=== PATIENT | female | born 1945 | race Caucasian/White ===

== ENCOUNTER → 2016-11-06 | Outpatient (CLI) | payer MEDICARE, BC ==
--- NOTE | 2016-11-07 07:41 | MM ---
Reason for exam: screening (asymptomatic). Last mammogram was performed 1 year ago. History: Patient is postmenopausal. Taking estrogen for 14 years beginning at age 53. Physical Findings: A clinical breast exam by your physician is recommended on an annual basis and results should be correlated with mammographic findings. MG 3D Screening Mammo W/Cad Bilateral CC and MLO view(s) were taken. Prior study comparison: October 25, 2015, bilateral MG 3d screening mammo w/cad. October 26, 2014, right breast MG work up mamm w CAD RT. There are scattered fibroglandular densities. Finding: There is a new 7.9 mm mass in the 3 o'clock position of the left breast with calcifications, approximately 17cm from nipple. New finding since October 25, 2015 and October 26, 2014. ASSESSMENT: Incomplete: need additional imaging evaluation, BI-RAD 0 RECOMMENDATION: Ultrasound of the left breast. [address] [facility] will attempt to contact patient to return for ultrasound.
== END | disposition home or self-care (01) ==
LOC: RADMAMWWP 14:08
PROVIDERS: ATTEND Family Medicine
DX: Z12.31 Encounter for screening mammogram for malignant neoplasm of breast (principal)
CPT/HCPCS: 77063; G0202

== ENCOUNTER → 2016-11-11 | Outpatient (CLI) | payer MEDICARE, BC ==
--- NOTE | 2016-11-11 10:00 | USB ---
Reason for exam: additional evaluation requested from abnormal screening. History: Patient is postmenopausal. Taking estrogen for 14 years beginning at age 53. Physical Findings: Nurse did not find any significant physical abnormalities on exam. US Breast Workup Limited LT Left breast ultrasound demonstrates two lesions too small to characterize at 3 o'clock measuring 4 x 3 x 4mm and 3 x 3 x 3mm. These results were verbally communicated with the patient and result sheet given to the patient on 11/11/16. ASSESSMENT: Probably benign, BI-RAD 3 RECOMMENDATION: Follow-up diagnostic mammogram and ultrasound of the left breast in 6 months.
== END | disposition home or self-care (01) ==
LOC: RADUSWWP 08:54
PROVIDERS: ATTEND Family Medicine
DX: R92.8 Other abnormal and inconclusive findings on diagnostic imaging of breast (principal)

== ENCOUNTER → 2017-11-09 | Outpatient (CLI) | payer MEDICARE, BC ==
--- NOTE | 2017-11-11 07:32 | MM ---
Reason for exam: screening (asymptomatic). Last mammogram was performed 6 months ago. History: Patient is postmenopausal. Taking estrogen beginning at age 53. Physical Findings: A clinical breast exam by your physician is recommended on an annual basis and results should be correlated with mammographic findings. MG 3D Screening Mammo W/Cad Bilateral CC and MLO view(s) were taken. Prior study comparison: May 20, 2017, left breast MG 3d diag mammo w/cad LT. November 06, 2016, bilateral MG 3d screening mammo w/cad. The breast tissue is heterogeneously dense. This may lower the sensitivity of mammography. There are similar appearing bilateral round oval masses. No suspicious abnormality. ASSESSMENT: Benign, BI-RAD 2 RECOMMENDATION: Routine screening mammogram of both breasts in 1 year.
== END | disposition home or self-care (01) ==
LOC: RADMAMWWP 16:26
PROVIDERS: ATTEND Family Medicine
DX: Z12.31 Encounter for screening mammogram for malignant neoplasm of breast (principal)
CPT/HCPCS: 77063; 77067

== ENCOUNTER → 2018-11-16 | Outpatient (CLI) | payer MEDICARE, BC ==
--- NOTE | 2018-11-16 12:11 | MM ---
Reason for exam: screening (asymptomatic). Last mammogram was performed 1 year ago. History: Patient is postmenopausal. Took estrogen beginning at age 53. Physical Findings: A clinical breast exam by your physician is recommended on an annual basis and results should be correlated with mammographic findings. MG 3D Screening Mammo W/Cad Bilateral CC and MLO view(s) were taken. Prior study comparison: November 09, 2017, bilateral MG 3d screening mammo w/cad. May 20, 2017, left breast MG 3d diag mammo w/cad LT. The breast tissue is heterogeneously dense. This may lower the sensitivity of mammography. There are benign appearing round, vascular calcifications bilaterally. There is no discrete abnormality. ASSESSMENT: Benign, BI-RAD 2 RECOMMENDATION: Routine screening mammogram of both breasts in 1 year.
== END | disposition home or self-care (01) ==
LOC: RADMAMWWP 09:32
PROVIDERS: ATTEND Family Medicine
DX: Z12.31 Encounter for screening mammogram for malignant neoplasm of breast (principal)
CPT/HCPCS: 77063; 77067

== ENCOUNTER → 2019-04-26 | Outpatient (CLI) | payer MEDICARE, BC ==
--- NOTE | 2019-04-26 15:54 | BD ---
EXAMINATION TYPE: Axial Bone Density DATE OF EXAM: 04/26/2019 COMPARISON: 10.18.2014 CLINICAL HISTORY: 73 YR OLD FEMALE....ICD-10 CODE: M89.9 DISORDER OF BONE Height: 64 Weight: 231 FRAX RISK QUESTIONS: History of Fracture in Adulthood: YES Secondary Osteoporosis: YES 1. Type 1 Diabetes: YES RISK FACTORS HISTORY OF: BOTH ELBOWS FXed AFTER AGE 51 Surgery to Spine LUMBAR SPINE FUSION WITH RODS AND SCREWS Postmenopausal woman: HYST AT AGE 53 YRS OLD, HORMONES IN THE PAST NONE NOW Lost more than 2 inches in height since high school: YES Frequent falls: UNSTEADY Hyperparathyroidism: NO Adrenal Insufficiency: NO MEDICATIONS: Additional Medications: PAIN PILLS, BP MEDS, ORAL DIABETIC MEDS AND INSULIN, VIT D, STATIN FOR CHOLES TEROL Additional History: OSTEOARTHRITIS, BILAT TKRs , DIABETIC, CHOLESTEROL, HYPERTENSION EXAM MEASUREMENTS: Bone mineral densitometry was performed using the [employer] System. SPINAL SURG, WITH HARDWARE, SPINE NOT SCANNED Bone mineral density about the R hip (g/cm2): 0.977 Bone mineral density about the L hip (g/cm2): 0.894 T Score values are as follows: -----R Neck: -1.3 -----L Neck: -1.9 -----R Total: -0.2 -----L Total: -0.9 Bone mineral density has: Decreased -0.5% since study of: 10.18.2014 FRAX%s: THERE IS A 16.9% CHANCE FOR A MAJOR OSTEOPOROTIC FX AND A 3.3% FOR HIP.....PROBABILITY FOR FX IN 10 YRS TIME Bone mineral density about the L Wrist (g/cm2): 0.606 T Score values are as follows: -----Dist. R+U: 1.0 -----Prox. R+U: -0.1 -----Radius total: -0.6 Bone mineral density FIRST FOREARM SCAN IMPRESSION: No evidence for osteoporosis or osteopenia at this time. NOTE: T-SCORE=SD OF THE YOUNG ADULT MEAN.
== END | disposition home or self-care (01) ==
LOC: RADBDWWP 12:48
PROVIDERS: ATTEND Family Medicine
DX: M85.80 Other specified disorders of bone density and structure, unspecified site (principal)
CPT/HCPCS: 77080

== ENCOUNTER → 2020-02-13 | Outpatient (CLI) | payer MEDICARE, BC ==
--- NOTE | 2020-02-15 11:03 | MM ---
Reason for exam: screening (asymptomatic). Last mammogram was performed 1 year and 3 months ago. History: Patient is postmenopausal. Took estrogen beginning at age 53. Physical Findings: A clinical breast exam by your physician is recommended on an annual basis and results should be correlated with mammographic findings. MG 3D Screening Mammo W/Cad Bilateral CC and MLO view(s) were taken. Prior study comparison: November 16, 2018, bilateral MG 3d screening mammo w/cad. November 09, 2017, bilateral MG 3d screening mammo w/cad. There are scattered fibroglandular densities. No significant changes when compared with prior studies. ASSESSMENT: Negative, BI-RAD 1 RECOMMENDATION: Routine screening mammogram of both breasts in 1 year.
== END | disposition home or self-care (01) ==
LOC: RADMAMWWP 07:31
PROVIDERS: ATTEND Family Medicine
DX: Z12.31 Encounter for screening mammogram for malignant neoplasm of breast (principal)
CPT/HCPCS: 77063; 77067

== ENCOUNTER → 2020-04-21 | Outpatient (CLI) | payer MEDICARE, BC | END | disposition home or self-care (01) | LOC: RADMRIMAIN 12:49 | PROVIDERS: ATTEND Orthopaedic Surgery | DX: Z53.9 Procedure and treatment not carried out, unspecified reason (principal) ==

== ENCOUNTER → 2021-03-21 | Outpatient (CLI) | payer MEDICARE, BC ==
--- NOTE | 2021-03-25 10:50 | MM ---
Reason for exam: screening (asymptomatic). Last mammogram was performed 1 year and 1 month ago. History: Patient is postmenopausal. Took estrogen for 10 years beginning at age 53. Physical Findings: A clinical breast exam by your physician is recommended on an annual basis and results should be correlated with mammographic findings. MG 3D Screening Mammo W/Cad Bilateral CC and MLO view(s) were taken. Prior study comparison: February 13, 2020, bilateral MG 3d screening mammo w/cad. November 16, 2018, bilateral MG 3d screening mammo w/cad. There is chronic nodularity bilaterally. No significant changes when compared with prior studies. ASSESSMENT: Negative, BI-RAD 1 RECOMMENDATION: Routine screening mammogram of both breasts in 1 year.
== END | disposition home or self-care (01) ==
LOC: RADMAMWWP 12:16
PROVIDERS: ATTEND Family Medicine
DX: Z12.31 Encounter for screening mammogram for malignant neoplasm of breast (principal)
CPT/HCPCS: 77063; 77067

== ENCOUNTER → 2021-08-21 | Outpatient (CLI) | payer MEDICARE, BC ==
--- NOTE | 2021-08-21 15:39 | XR ---
EXAMINATION TYPE: XR chest 2V DATE OF EXAM: 08/21/2021 COMPARISON: 02/22/2016 INDICATION: Short of breath TECHNIQUE: Frontal and lateral views of the chest are obtained. FINDINGS: The heart size is normal. The pulmonary vasculature is normal. The lungs are clear. IMPRESSION: 1. No acute pulmonary process.
== END | disposition home or self-care (01) ==
LOC: RADXRYALE 15:12
PROVIDERS: ATTEND Physician Assistant Medical
DX: R06.02 Shortness of breath (principal)
CPT/HCPCS: 71046

== ENCOUNTER 2021-08-23 21:45 | Inpatient (IN) | payer MEDICARE, BC ==
--- NOTE | 2021-08-23 22:26 | ED ---
Recheck HPI - General Chief Complaint: Recheck/Abnormal Lab/Rx Stated Complaint: Weakness Time Seen by Provider: 08/23/21 22:11 Source: patient, EMS, RN notes reviewed, old records reviewed Mode of arrival: EMS Limitations: no limitations - History of Present Illness Initial Comments: This is a 76-year-old female to the emergency today. Patient presents today after being accepted in transfer for low potassium elevated calcium. Patient currently is besides from being be mildly weak and dehydrated has no significant complaints. No headache chest pain shortness breath or abdominal pain. No muscle pain. MD Complaint: abnormal lab (Low potassium high calcium) Returns Today for: Called Because of Abnormal Lab/Test Symptoms Since Prior Visit: no new symptoms Context: planned re-check, called for abnormal lab result Associated Symptoms: none Treatments Prior to Arrival: other medications - Related Data Home Medications Medication Instructions Recorded Confirmed Losartan Potassium 50 mg PO DAILY 01/11/14 08/23/21 metFORMIN HCL [Glucophage] 500 mg PO BID 01/11/14 08/23/21 Insulin Detemir [Levemir Flextouch 27 units SQ HS 02/20/16 08/23/21 Pen] Atorvastatin [Lipitor] 40 mg PO HS 08/23/21 08/23/21 Ergocalciferol (Vitamin D2) 1,250 mcg PO DIAZ 08/23/21 08/23/21 [Drisdol (50,000 Iu)] Gabapentin [Neurontin] 300 mg PO BID 08/23/21 08/23/21 HYDROcodone/APAP 7.5-325MG [[place] 1 tab PO TID 08/23/21 08/23/21 7.5-325] Ibuprofen [Motrin Ib] 400 mg PO Q8H PRN 08/23/21 08/23/21 Pioglitazone [Actos] 45 mg PO DAILY 08/23/21 08/23/21 hydroCHLOROthiazide [Hydrodiuril] 25 mg PO DAILY 08/23/21 08/23/21 Allergies Allergy/AdvReac Type Severity Reaction Status Date / Time PAM Inhibitors Allergy Cough Verified 08/23/21 23:19 adhesive Allergy Rash/Hives,SKIN Verified 08/23/21 23:19 BLISTERS clarithromycin [From Biaxin] Allergy INSOMINA Verified 08/23/21 23:19 meloxicam [From Mobic] Allergy Itching Verified 08/23/21 23:19 naproxen Allergy Itching Verified 08/23/21 23:19 Review of Systems ROS Statement: Those systems with pertinent positive or pertinent negative responses have been documented in the HPI. ROS Other: All systems not noted in ROS Statement are negative. Past Medical History Past Medical History: Diabetes Mellitus, Hyperlipidemia, Hypertension Additional Past Medical History / Comment(s): arthritis History of Any Multi-Drug Resistant Organisms: None Reported Past Surgical History: Hysterectomy, Orthopedic Surgery Additional Past Surgical History / Comment(s): 1--16 TOTAL RT KNEE ARTHROPLASTY. RIGHT SHOULDER ROTATOR CUFF,RADHA CATARACT SURGERY,RIGHT KNEE ARTHROSCOPIC Past Anesthesia/Blood Transfusion Reactions: No Reported Reaction Additional Past Anesthesia/Blood Transfusion Reaction / Comment(s): "Hard to wake up" Past Psychological History: No Psychological Hx Reported Smoking Status: Never smoker Past Alcohol Use History: None Reported Past Drug Use History: None Reported - Past Family History Father Family Medical History: Cancer Additional Family Medical History / Comment(s): PROSTATE Mother Family Medical History: CVA/TIA General Exam General appearance: alert, in no apparent distress Head exam: Present: atraumatic, normocephalic, normal inspection Eye exam: Present: normal appearance, PERRL, EOMI. Absent: scleral icterus, conjunctival injection, periorbital swelling ENT exam: Present: normal exam, mucous membranes moist Neck exam: Present: normal inspection. Absent: tenderness, meningismus, lymphadenopathy Respiratory exam: Present: normal lung sounds bilaterally. Absent: respiratory distress, wheezes, rales, rhonchi, stridor Cardiovascular Exam: Present: regular rate, normal rhythm, normal heart sounds. Absent: systolic murmur, diastolic murmur, rubs, gallop, clicks GI/Abdominal exam: Present: soft, normal bowel sounds. Absent: distended, tenderness, guarding, rebound, rigid Extremities exam: Present: normal inspection, full ROM, normal capillary refill. Absent: tenderness, pedal edema, joint swelling, calf tenderness Back exam: Present: normal inspection Neurological exam: Present: alert, oriented X3, CN II-XII intact Psychiatric exam: Present: normal affect, normal mood Skin exam: Present: warm, dry, intact, normal color. Absent: rash Course Vital Signs 08/23/21 08/23/21 08/23/21 21:53 22:23 23:23 Temperature 98.7 F Pulse Rate 77 56 L 54 L Respiratory 18 18 18 Rate Blood Pressure 169/84 165/84 181/92 O2 Sat by Pulse 98 98 95 Oximetry - Reevaluation(s) Reevaluation #1: 08/24/21 00:39 Medical record is reviewed Reevaluation #2: 08/24/21 00:39 Patient's transfer paperwork is also been reviewed 08/24/21 00:39 Patient was accepted in transfer Reevaluation #3: 08/24/21 00:39 Patient informed results and questions answered - Consultations Consultation #1: Spoke with [facility] who agrees to admit this patient Medical Decision Making - Medical Decision Making 76 female to the emergency department. Patient presents today for evaluation regards to recheck of low potassium and elevated calcium. Patient does have some dehydration, electrolyte values are improving will be admitted for further monitoring - Lab Data Result diagrams: 08/23/21 23:15 08/23/21 23:15 Lab Results 08/23/21 08/23/21 08/23/21 Range/Units 23:15 23:15 23:15 WBC 6.0 (3.8-10.6) k/uL RBC 4.25 (3.80-5.40) m/uL Hgb 12.8 (11.4-16.0) gm/dL Hct 38.1 (34.0-46.0) % MCV 89.7 (80.0-100.0) fL MCH 30.2 (25.0-35.0) pg MCHC 33.6 (31.0-37.0) g/dL RDW 14.7 (11.5-15.5) % Plt Count 241 (150-450) k/uL MPV 8.4 Neutrophils % (Manual) 56 % Lymphocytes % (Manual) 36 % Monocytes % (Manual) 5 % Eosinophils % (Manual) 3 % Neutrophils # (Manual) 3.36 (1.3-7.7) k/uL Lymphocytes # (Manual) 2.16 (1.0-4.8) k/uL Monocytes # (Manual) 0.30 (0-1.0) k/uL Eosinophils # (Manual) 0.18 (0-0.7) k/uL Nucleated RBCs 0 (0-0) /100 WBC Manual Slide Review Performed Toxic Vacuolation Present RBC Morphology Normal PT 10.9 (9.0-12.0) sec INR 1.0 (<1.2) APTT 28.0 (22.0-30.0) sec Sodium (137-145) mmol/L Potassium (3.5-5.1) mmol/L Chloride (98-107) mmol/L Carbon Dioxide (22-30) mmol/L Anion Gap mmol/L BUN (7-17) mg/dL Creatinine (0.52-1.04) mg/dL Est GFR (CKD-EPI)AfAm (>60 ml/min/1.73 sqM) Est GFR (CKD-EPI)NonAf (>60 ml/min/1.73 sqM) Glucose (74-99) mg/dL Plasma Lactic Acid Jose A (0.7-2.0) mmol/L Calcium (8.4-10.2) mg/dL Total Bilirubin (0.2-1.3) mg/dL AST (14-36) U/L ALT (4-34) U/L Alkaline Phosphatase (38-126) U/L Troponin I (0.000-0.034) ng/mL Total Protein (6.3-8.2) g/dL Albumin (3.5-5.0) g/dL Urine Color Light Yellow Urine Appearance Clear (Clear) Urine pH 6.0 (5.0-8.0) Ur Specific [place]ushing 1.005 (1.001-1.035) Urine Protein Negative (Negative) Urine Glucose (UA) Negative (Negative) Urine Ketones Negative (Negative) Urine Blood Negative (Negative) Urine Nitrite Negative (Negative) Urine Bilirubin Negative (Negative) Urine Urobilinogen <2.0 (<2.0) mg/dL Ur Leukocyte Esterase Small H (Negative) Urine RBC 2 (0-5) /hpf Urine WBC 3 (0-5) /hpf Ur Squamous Epith Cells 1 (0-4) /hpf Urine Bacteria Rare H (None) /hpf 08/23/21 08/23/21 08/23/21 Range/Units 23:15 23:15 23:15 WBC (3.8-10.6) k/uL RBC (3.80-5.40) m/uL Hgb (11.4-16.0) gm/dL Hct (34.0-46.0) % MCV (80.0-100.0) fL MCH (25.0-35.0) pg MCHC (31.0-37.0) g/dL RDW (11.5-15.5) % Plt Count (150-450) k/uL MPV Neutrophils % (Manual) % Lymphocytes % (Manual) % Monocytes % (Manual) % Eosinophils % (Manual) % Neutrophils # (Manual) (1.3-7.7) k/uL Lymphocytes # (Manual) (1.0-4.8) k/uL Monocytes # (Manual) (0-1.0) k/uL Eosinophils # (Manual) (0-0.7) k/uL Nucleated RBCs (0-0) /100 WBC Manual Slide Review Toxic Vacuolation RBC Morphology PT (9.0-12.0) sec INR (<1.2) APTT (22.0-30.0) sec Sodium 134 L (137-145) mmol/L Potassium 3.5 (3.5-5.1) mmol/L Chloride 100 (98-107) mmol/L Carbon Dioxide 28 (22-30) mmol/L Anion Gap 6 mmol/L BUN 21 H (7-17) mg/dL Creatinine 1.97 H (0.52-1.04) mg/dL Est GFR (CKD-EPI)AfAm 28 (>60 ml/min/1.73 sqM) Est GFR (CKD-EPI)NonAf 24 (>60 ml/min/1.73 sqM) Glucose 108 H (74-99) mg/dL Plasma Lactic Acid Jose A 1.6 (0.7-2.0) mmol/L Calcium 12.4 H (8.4-10.2) mg/dL Total Bilirubin 1.0 (0.2-1.3) mg/dL AST 34 (14-36) U/L ALT 23 (4-34) U/L Alkaline Phosphatase 70 (38-126) U/L Troponin I 0.016 (0.000-0.034) ng/mL Total Protein 7.2 (6.3-8.2) g/dL Albumin 3.8 (3.5-5.0) g/dL Urine Color Urine Appearance (Clear) Urine pH (5.0-8.0) Ur Specific [place] (1.001-1.035) Urine Protein (Negative) Urine Glucose (UA) (Negative) Urine Ketones (Negative) Urine Blood (Negative) Urine Nitrite (Negative) Urine Bilirubin (Negative) Urine Urobilinogen (<2.0) mg/dL Ur Leukocyte Esterase (Negative) Urine RBC (0-5) /hpf Urine WBC (0-5) /hpf Ur Squamous Epith Cells (0-4) /hpf Urine Bacteria (None) /hpf - EKG Data -: EKG Interpreted by Me (EKG is sinus bradycardia 55 AR 170 QRS 140 QTC 404) Disposition Clinical Impression: Hypokalemia, Hypercalcemia, Weakness, Dehydration Disposition: ADMITTED IP TO THIS HOSP Condition: Good Is patient prescribed a controlled substance at d/c from ED?: No Referrals: Carlos Lao DO [Primary Care Provider] - 1-2 days
[2021-08-23 23:35] LABS: Appearance,Urine Clear (Clear); Bacteria,Urine Rare /hpf; Bilirubin,Urine Negative (Negative); Blood,Urine Negative (Negative); Color,Urine Light Yellow; Glucose,Urine (UA) Negative (Negative); HCT 38.1 % (34.0-46.0); HGB 12.8 gm/dL (11.4-16.0); Ketones,Urine Negative (Negative); Leukocyte Esterase,Urine Small (Negative); MCH 30.2 pg (25.0-35.0); MCHC 33.6 g/dL (31.0-37.0); MCV 89.7 fL (80.0-100.0); Mean Platelet Volume 8.4; Nitrite,Urine Negative (Negative); Platelet Count 241 k/uL (150-450); Protein,Urine Negative (Negative); RBC 4.25 m/uL (3.80-5.40); RBC,Urine 2 /hpf (0-5); RDW 14.7 % (11.5-15.5); Specific Gravity,Urine 1.005 (1.001-1.035); Squamous Epithelial Cell,Urine 1 /hpf (0-4); Urobilinogen,Urine <2.0 mg/dL (<2.0); WBC,Urine 3 /hpf (0-5)
--- NOTE | 2021-08-23 23:37 | XR ---
EXAMINATION TYPE: XR chest 2V DATE OF EXAM: 08/23/2021 COMPARISON: 08/23/2021 HISTORY: Weakness TECHNIQUE: 2 views FINDINGS: There is no heart failure nor confluent pneumonic infiltrate. Costophrenic angles are clear . There are chest leads. IMPRESSION: No active cardiopulmonary disease. Normal heart. No change.
[2021-08-23 23:43] LABS: Potassium 3.5 mmol/L (3.5-5.1); Prothrombin Time 10.9 sec (9.0-12.0)
[2021-08-23 23:44] LABS: Albumin 3.8 g/dL (3.5-5.0); Calcium 12.4 mg/dL (8.4-10.2); Total Protein 7.2 g/dL (6.3-8.2)
[2021-08-24 00:06] LABS: Eosinophils # (M) 0.18 k/uL (0-0.7); Lymphocytes # (M) 2.16 k/uL (1.0-4.8); Neutrophils # (M) 3.36 k/uL (1.3-7.7); Neutrophils % (M) 56 %; Nucleated Red Blood Cells 0 /100 WBC (0-0); RBC Morphology Normal; Total Cells Counted 100
[2021-08-24 00:07] LABS: Toxic Vacuolation Present
[2021-08-24] MEDS ORDERED: SODIUM CHLORIDE 0.9% 500 ML 500 ML IV STA (00:30)
[2021-08-24] MEDS ORDERED: SODIUM CHLORIDE 0.9% 1,000 ML IV STA (00:30)
[2021-08-24] MEDS ORDERED: POTASSIUM BICARBONATE/CIT AC 20 MEQ TABLET.EFF PO ONE (00:30)
[2021-08-24] MEDS ORDERED: NALOXONE 0.4 MG/ML 1 ML VIAL IV PRN (00:31)
[2021-08-24] MEDS: SODIUM CHLORIDE 0.9% 1,000 ML IV SCH ×3 (01:39→16:22)
--- NOTE | 2021-08-24 04:23 | P.HPIM ---
History of Present Illness H&P Date: 08/24/21 Patient is a 76-year-old female with a PMH of type II DM, hypertension, hyperlipidemia who presents to the emergency room with complaints of generalized weakness. The patient reports that over the past few weeks, she has been feeling progressively weaker and has also had decreased exercise tolerance. She reports endorsing these problems to her PCP who referred her to cardiology where some tests were performed but the patient does not know the results of those tests. The patient denied any additional complaints. She denied experiencing chest discomfort, nausea, vomiting, abdominal pain, fever, chills, cough, diarrhea. She underwent laboratory evaluation as ordered by her PCP who called the patient and advised her to go to the emergency room immediately. The patient reports she was told that her calcium was high and her potassium was low. Patient presented to the [facility] emergency room where laboratory evaluation revealed a potassium of 3.0 and calcium of 13.5. The patient's UA was also consistent with UTI for which the patient was given ceftriaxone 1 g and was subsequently sent to [place] emergency room. In our laboratory evaluation, the patient's potassium was 3.5 with calcium 12.4, BUN 21, creatinine 1.97, and an unremarkable UA. EKG reveals sinus bradycardia at 55 bpm with sinus arrhythmia and left axis deviation as well as left bundle branch block. Chest x-ray was unremarkable. Review of systems: Pertinent positives and negatives as discussed in HPI, a complete review of systems was performed and all other systems are negative. Physical examination: General: non toxic, no distress, appears at stated age, obese Derm: no unusual rashes/lesions no unusual ecchymoses, warm, dry Head: atraumatic, normocephalic, symmetric Eyes: EOMI, no lid lag, anicteric sclera, pupils equal round reactive to light ENT: Nose and ears atraumatic, no thrush, no pharyngeal erythema Neck: No thyromegaly, no cervical lymphadenopathy, trachea midline, supple Mouth: no lip lesion, mucus membranes moist Cardiovascular: S1S2 reg, no murmur, positive posterior tibial pulse bilateral, no edema, capillary refill less than 2 seconds Lungs: CTA bilateral, no rhonchi, no rales , no accessory muscle use Abdominal: soft, nontender to palpation, no guarding, no appreciable organomegaly, normal bowel sounds Ext: no gross muscle atrophy, muscle strength 4 out of 5 in all 4 extremities grossly, no contractures, Neuro: CN II-XI grossly intact, light touch intact all 4 extremities, finger to nose within normal limits, Psych: Alert, oriented, appropriate affect Assessment/plan Hypercalcemia -Obtain workup including myeloma and PTH levels Hypokalemia -Replace and monitor Kidney injury, acute versus chronic -Creatinine 1.97, previously 0.7 in 2016 -Maybe due to underlying myeloma versus poor oral intake Chronic conditions: Type II DM, hypertension, hyperlipidemia -Continue with home meds -Insulin sliding scale and blood glucose monitoring -Check A1c DVT prophylaxis -Heparin subcu The patient is admitted with an anticipated less than 2 midnight stay for evaluation of hypercalcemia CODE STATUS: Full Code Discussed with: Patient Anticipated discharge date: in am Anticipated discharge place: Home Past Medical History Past Medical History: Diabetes Mellitus, Hyperlipidemia, Hypertension Additional Past Medical History / Comment(s): arthritis History of Any Multi-Drug Resistant Organisms: None Reported Past Surgical History: Hysterectomy, Orthopedic Surgery Additional Past Surgical History / Comment(s): 06-05-15 TOTAL RT KNEE ARTHROPLASTY. RIGHT SHOULDER ROTATOR CUFF,RADHA CATARACT SURGERY,RIGHT KNEE ART HROSCOPIC Past Anesthesia/Blood Transfusion Reactions: No Reported Reaction Additional Past Anesthesia/Blood Transfusion Reaction / Comment(s): "Hard to wake up" Past Psychological History: No Psychological Hx Reported Smoking Status: Never smoker Past Alcohol Use History: None Reported Past Drug Use History: None Reported - Past Family History Father Family Medical History: Cancer Additional Family Medical History / Comment(s): PROSTATE Mother Family Medical History: CVA/TIA Medications and Allergies Home Medications Medication Instructions Recorded Confirmed Type Losartan Potassium 50 mg PO DAILY 01/11/14 08/23/21 History metFORMIN HCL [Glucophage] 500 mg PO BID 01/11/14 08/23/21 History Insulin Detemir [Levemir Flextouch 27 units SQ HS 02/20/16 08/23/21 History Pen] Atorvastatin [Lipitor] 40 mg PO HS 08/23/21 08/23/21 History Ergocalciferol (Vitamin D2) 1,250 mcg PO DIAZ 08/23/21 08/23/21 History [Drisdol (50,000 Iu)] Gabapentin [Neurontin] 300 mg PO BID 08/23/21 08/23/21 History HYDROcodone/APAP 7.5-325MG [[place] 1 tab PO TID 08/23/21 08/23/21 History 7.5-325] Ibuprofen [Motrin Ib] 400 mg PO Q8H PRN 08/23/21 08/23/21 History Pioglitazone [Actos] 45 mg PO DAILY 08/23/21 08/23/21 History hydroCHLOROthiazide [Hydrodiuril] 25 mg PO DAILY 08/23/21 08/23/21 History Allergies Allergy/AdvReac Type Severity Reaction Status Date / Time PAM Inhibitors Allergy Cough Verified 08/23/21 23:19 adhesive Allergy Rash/Hives,SKIN Verified 08/23/21 23:19 BLISTERS clarithromycin [From Biaxin] Allergy INSOMINA Verified 08/23/21 23:19 meloxicam [From Mobic] Allergy Itching Verified 08/23/21 23:19 naproxen Allergy Itching Verified 08/23/21 23:19 Physical Exam Vitals: Vital Signs Temp Pulse Pulse Resp BP BP Pulse Ox 08/24/21 01:34 69 18 167/80 96 08/24/21 00:45 98.6 F 71 16 187/79 97 08/23/21 23:23 54 L 18 181/92 95 08/23/21 22:23 56 L 18 165/84 98 08/23/21 21:53 98.7 F 77 18 169/84 98 Intake and Output 08/23/21 08/23/21 08/24/21 14:59 22:59 06:59 Other: Weight 99.337 kg 99.337 kg Results CBC & Chem 7: 08/23/21 23:15 08/23/21 23:15 Labs: Abnormal Lab Results - Last 24 Hours (Table) 08/23/21 08/23/21 Range/Units 23:15 23:15 Sodium 134 L (137-145) mmol/L BUN 21 H (7-17) mg/dL Creatinine 1.97 H (0.52-1.04) mg/dL Glucose 108 H (74-99) mg/dL Calcium 12.4 H (8.4-10.2) mg/dL Ur Leukocyte Esterase Small H (Negative) Urine Bacteria Rare H (None) /hpf Thrombosis Risk Factor Assmnt - Choose All That Apply Any of the Below Risk Factors Present?: Yes Each Factor Represents 1 point: Obesity (BMI >25) Other Risk Factors: Yes Each Risk Factor Represents 3 Points: Age 75 years or older Other congenital or acquired thrombophilia - If yes, enter type in comment: No Thrombosis Risk Factor Assessment Total Risk Factor Score: 4 Thrombosis Risk Factor Assessment Level: Moderate Risk
[2021-08-24] MEDS: HYDROcodone/APAP 7.5-325MG 1 EACH TAB PO PRN ×3 (05:51→22:37)
[2021-08-24 07:23] LABS: Glucose,Whole Blood 108 mg/dL (75-99)
[2021-08-24] MEDS: INSULIN ASPART (NovoLOG) 100 UNIT/ML VIAL SQ SCH ×4 (07:46→21:04)
--- NOTE | 2021-08-24 08:05 | US ---
EXAMINATION TYPE: US kidneys/renal and bladder DATE OF EXAM: 08/24/2021 COMPARISON: CT 2010 CLINICAL HISTORY: [facility] Exam done portable EXAM MEASUREMENTS: Right Kidney: 9.1 x 4.0 x 4.5 cm Left Kidney: 11.0 x 4.6 x 4.7 cm Right Kidney: small in size when compared to left kidney, no hydronephrosis or masses seen Left Kidney: no hydronephrosis or masses seen Bladder: wnl There is no evidence for hydronephrosis at this point in time. No nephrolithiasis is seen. No andrez s are identified. The urinary bladder is anechoic. Bilateral ureteral jets are seen. IMPRESSION: No evidence of obstructive uropathy.
[2021-08-24] MEDS: HEPARIN SODIUM,PORCINE/PF 5,000 UNIT/0.5 ML SYRINGE SQ SCH ×2 (08:50→16:22)
[2021-08-24] MEDS: POTASSIUM BICARBONATE/CIT AC 20 MEQ TABLET.EFF PO SCH (08:51)
[2021-08-24] MEDS: GABAPENTIN 300 MG CAP PO SCH ×2 (08:51→21:04)
[2021-08-24] MEDS ORDERED: CALCITONIN INJ 200 UNIT/ML (MDV) VIAL IM ONE (09:00)
[2021-08-24 09:26] LABS: HCT 36.2 % (37.2-46.3); HGB 11.8 g/dL (12.0-15.0); MCH 29.4 pg (27.0-32.0); MCHC 32.6 g/dL (32.0-37.0); Mean Platelet Volume 11.5 fL (9.5-12.2); NRBC Per 100 WBC 0 /100 WBCS (0.0-0.0); Platelet Count 225 X 10*3/uL (140-440); Protein, Total 6.8 g/dL (6.2-8.2); RBC 4.02 X 10*6/uL (4.10-5.20); RDW 14.4 % (11.5-14.5); WBC 6.01 X 10*3/uL (4.50-10.00)
[2021-08-24 09:45] LABS: African American GFR (CKD) 27.6 (60.0-200.0); Albumin 3.9 g/dL (3.8-4.9); Albumin/Globulin Ratio 1.34 (1.60-3.17); Anion Gap 12.5 mmol/L (10.00-18.00); BUN/Creat Ratio 8.7 Ratio (12.00-20.00); Blood Urea Nitrogen 17.4 mg/dL (9.0-27.0); Calcium 13.1 mg/dL (8.7-10.3); Carbon Dioxide 26.5 mmol/L (20.0-27.5); Globulin 2.9 g/dL (1.6-3.3); Non-African American GFR(CKD) 23.8 (60.0-200.0); Potassium 3.9 mmol/L (3.5-5.5); Total Bilirubin 0.5 mg/dL (0.30-1.20); Total Protein 6.8 g/dL (6.2-8.2)
[2021-08-24] MEDS ORDERED: RX INFO: IV CONTRAST WAS GIVEN 1 EACH MISC MISCELLANE PRN (10:10)
[2021-08-24] MEDS: IOPAMIDOL CONTRAST (ORAL USE) VIAL PO PRN ×2 (10:56→12:00)
[2021-08-24] MEDS ORDERED: SODIUM CHLORIDE 0.9% IV ONE ×2 (11:30)
[2021-08-24] MEDS ORDERED: PAMIDRONATE IV ONE ×2 (11:30)
[2021-08-24 11:37] LABS: Glucose,Whole Blood 107 mg/dL (75-99)
[2021-08-24] MEDS: ONDANSETRON 4 MG/2 ML VIAL IVP PRN ×2 (13:37→22:39)
--- NOTE | 2021-08-24 13:51 | CT ---
EXAMINATION TYPE: CT ChestAbdPelvis w con CT DLP: 1904.8 mGycm, Automated exposure control for dose reduction was used. DATE OF EXAM: 08/24/2021 1:21 PM COMPARISON: CT chest 07/18/2014. CLINICAL INDICATION:Female, 76 years old with history of r/o lymphoma, Hypercalcemia, Hyperkalemia Technique: Multiple axial images of the chest, abdomen, and pelvis were obtained following the intrav enous administration of 100 mL Isovue-300. Two-dimensional coronal and sagittal reconstructions were obtained. Findings: CHEST: LUNGS/ PLEURA: The lung parenchyma appears unremarkable. AIRWAY: Patent and unremarkable.. HEART: Size within normal limits. Atherosclerosis of the coronary arteries.. MEDIASTINUM: No gross evidence of adenopathy. Prominent but nonenlarged lymph nodes are seen within t he mediastinum right low paratracheal measuring up to 10 mm. VASCULATURE: No aortic aneurysm. MUSCULOSKELETAL: No acute osseous abnormalities. SOFT TISSUES/LYMPH NODES: Unremarkable. LOWER NECK: No significant findings. ABDOMEN: ABDOMEN LIVER: Nodular contour to the liver. GALLBLADDER AND BILE DUCTS: Unremarkable. PANCREAS: Lipomatous pseudohypertrophy changes. SPLEEN: Heterogenous spleen with multiple low areas of attenuation do not completely match background spleen on any sequences. Spleen is mildly enlarged measuring up to 14.4 cm. ADRENAL GLANDS: Unremarkable. KIDNEYS AND URETERS: No evidence of hydronephrosis or renal calculus. The ureters are unremarkable. PELVIS BLADDER: Unremarkable REPRODUCTIVE: Unremarkable. ABDOMEN & PELVIS STOMACH AND BOWEL: No evidence of bowel obstruction. Scattered colonic diverticula present. PERITONEUM: No evidence of pneumoperitoneum or free fluid. VASCULATURE: No evidence of aortic aneurysm. Scattered atherosclerosis of the arterial vasculature. MUSCULOSKELETAL: No acute osseous abnormalities, disc degeneration changes with fixation hardware at L3-S1. LYMPH NODES: Multiple left periaortic lymph nodes which are enlarged measuring up to 12 mm in short a xis. SOFT TISSUE/ABDOMINAL WALL: Unremarkable IMPRESSION: 1. Heterogenous enhancing spleen with suspected numerous underlying lesions. This is not felt to rep resent normal enhancement pattern. This in combination with left periaortic lymphadenopathy is concer shane for lymphoma. Consider tissue sampling of the left periaortic lymph nodes for definitive diagnos is. 2. Nodular contour to liver correlate for cirrhosis. 3. Colonic diverticulosis.
--- NOTE | 2021-08-24 16:11 | P.GSCN ---
History of Present Illness Consult date: 08/24/21 History of present illness: Patient admitted due to abnormal blood work. Additional diagnostic studies obtained included computed tomography scan of the pelvis. CT of the abdomen and pelvis reviewed demonstrating no bowel obstruction. No free air. This is my independent interpretation. CT report demonstrates retro-aortic lymphadenopathy questionable for lymphoma. Recommend hematology oncology consult for further workup for lymphoma. At this time, we'll hold off on biopsy due to retroperitoneal area which is extremely high risk and may be done by interventional radiology Past Medical History Past Medical History: Diabetes Mellitus, Hyperlipidemia, Hypertension Additional Past Medical History / Comment(s): arthritis History of Any Multi-Drug Resistant Organisms: None Reported Past Surgical History: Hysterectomy, Orthopedic Surgery Additional Past Surgical History / Comment(s): 06-05-15 TOTAL RT KNEE ARTHROPLAST Y. RIGHT SHOULDER ROTATOR CUFF,RADHA CATARACT SURGERY,RIGHT KNEE ARTHROSCOPIC Past Anesthesia/Blood Transfusion Reactions: No Reported Reaction Additional Past Anesthesia/Blood Transfusion Reaction / Comm: "Hard to wake up" Past Psychological History: No Psychological Hx Reported Smoking Status: Never smoker Past Alcohol Use History: None Reported Past Drug Use History: None Reported - Past Family History Father Family Medical History: Cancer Additional Family Medical History / Comment(s): PROSTATE Mother Family Medical History: CVA/TIA Medications and Allergies Home Medications Medication Instructions Recorded Confirmed Type Losartan Potassium 50 mg PO DAILY 01/11/14 08/23/21 History metFORMIN HCL [Glucophage] 500 mg PO BID 01/11/14 08/23/21 History Insulin Detemir [Levemir Flextouch 27 units SQ HS 02/20/16 08/23/21 History Pen] Atorvastatin [Lipitor] 40 mg PO HS 08/23/21 08/23/21 History Ergocalciferol (Vitamin D2) 1,250 mcg PO DIAZ 08/23/21 08/23/21 History [Drisdol (50,000 Iu)] Gabapentin [Neurontin] 300 mg PO BID 08/23/21 08/23/21 History HYDROcodone/APAP 7.5-325MG [[place] 1 tab PO TID 08/23/21 08/23/21 History 7.5-325] Ibuprofen [Motrin Ib] 400 mg PO Q8H PRN 08/23/21 08/23/21 History Pioglitazone [Actos] 45 mg PO DAILY 08/23/21 08/23/21 History hydroCHLOROthiazide [Hydrodiuril] 25 mg PO DAILY 08/23/21 08/23/21 History Allergies Allergy/AdvReac Type Severity Reaction Status Date / Time PAM Inhibitors Allergy Cough Verified 08/23/21 23:19 adhesive Allergy Rash/Hives,SKIN Verified 08/23/21 23:19 BLISTERS clarithromycin [From Biaxin] Allergy INSOMINA Verified 08/23/21 23:19 meloxicam [From Mobic] Allergy Itching Verified 08/23/21 23:19 naproxen Allergy Itching Verified 08/23/21 23:19 Surgical - Exam Vital Signs Temp Pulse Resp BP Pulse Ox 98.7 F 77 18 169/84 98 08/23/21 21:53 08/23/21 21:53 08/23/21 21:53 08/23/21 21:53 08/23/21 21:53 Results - Labs 08/24/21 05:47 08/24/21 05:47 Abnormal Lab Results - Last 24 Hours (Table) 08/23/21 08/23/21 08/24/21 Range/Units 23:15 23:15 05:47 RBC 4.02 L (4.10-5.20) X 10*6/uL Hgb 11.8 L (12.0-15.0) g/dL Hct 36.2 L (37.2-46.3) % Sodium 134 L (137-145) mmol/L BUN 21 H (7-17) mg/dL Creatinine 1.97 H (0.52-1.04) mg/dL Est GFR (CKD-EPI)AfAm (60.0-200.0) Est GFR (CKD-EPI)NonAf (60.0-200.0) BUN/Creatinine Ratio (12.00-20.00) Ratio Glucose 108 H (74-99) mg/dL POC Glucose (mg/dL) (75-99) mg/dL Calcium 12.4 H (8.4-10.2) mg/dL Albumin/Globulin Ratio (1.60-3.17) g/dL Vitamin D 25-Hydroxy (30.0-100.0) ng/mL Ur Leukocyte Esterase Small H (Negative) Urine Bacteria Rare H (None) /hpf U Random Total Protein (<12) mg/dL 08/24/21 08/24/21 08/24/21 Range/Units 05:47 06:00 07:12 RBC (4.10-5.20) X 10*6/uL Hgb (12.0-15.0) g/dL Hct (37.2-46.3) % Sodium (137-145) mmol/L BUN (7-17) mg/dL Creatinine 2.0 H (0.52-1.04) mg/dL Est GFR (CKD-EPI)AfAm 27.6 L (60.0-200.0) Est GFR (CKD-EPI)NonAf 23.8 L (60.0-200.0) BUN/Creatinine Ratio 8.70 L (12.00-20.00) Ratio Glucose (74-99) mg/dL POC Glucose (mg/dL) 108 H (75-99) mg/dL Calcium 13.1 H* (8.4-10.2) mg/dL Albumin/Globulin Ratio 1.34 L (1.60-3.17) g/dL Vitamin D 25-Hydroxy 17.0 L (30.0-100.0) ng/mL Ur Leukocyte Esterase (Negative) Urine Bacteria (None) /hpf U Random Total Protein 28 H (<12) mg/dL 08/24/21 Range/Units 11:32 RBC (4.10-5.20) X 10*6/uL Hgb (12.0-15.0) g/dL Hct (37.2-46.3) % Sodium (137-145) mmol/L BUN (7-17) mg/dL Creatinine (0.52-1.04) mg/dL Est GFR (CKD-EPI)AfAm (60.0-200.0) Est GFR (CKD-EPI)NonAf (60.0-200.0) BUN/Creatinine Ratio (12.00-20.00) Ratio Glucose (74-99) mg/dL POC Glucose (mg/dL) 107 H (75-99) mg/dL Calcium (8.4-10.2) mg/dL Albumin/Globulin Ratio (1.60-3.17) g/dL Vitamin D 25-Hydroxy (30.0-100.0) ng/mL Ur Leukocyte Esterase (Negative) Urine Bacteria (None) /hpf U Random Total Protein (<12) mg/dL Diabetes panel 08/23/21 08/24/21 Range/Units 23:15 05:47 Sodium 134 L 139 (137-145) mmol/L Potassium 3.5 3.9 (3.5-5.1) mmol/L Chloride 100 100 (98-107) mmol/L Carbon Dioxide 28 26.5 (22-30) mmol/L BUN 21 H 17.4 (7-17) mg/dL Creatinine 1.97 H 2.0 H (0.52-1.04) mg/dL Glucose 108 H 110 (74-99) mg/dL Calcium 12.4 H 13.1 H* (8.4-10.2) mg/dL AST 34 22 (14-36) U/L ALT 23 25 (4-34) U/L Alkaline Phosphatase 70 65 (38-126) U/L Total Protein 7.2 6.8 (6.3-8.2) g/dL Albumin 3.8 3.9 (3.5-5.0) g/dL Calcium panel 08/23/21 08/24/21 Range/Units 23:15 05:47 Calcium 12.4 H 13.1 H* (8.4-10.2) mg/dL Albumin 3.8 3.9 (3.5-5.0) g/dL Pituitary panel 08/23/21 08/24/21 Range/Units 23:15 05:47 Sodium 134 L 139 (137-145) mmol/L Potassium 3.5 3.9 (3.5-5.1) mmol/L Chloride 100 100 (98-107) mmol/L Carbon Dioxide 28 26.5 (22-30) mmol/L BUN 21 H 17.4 (7-17) mg/dL Creatinine 1.97 H 2.0 H (0.52-1.04) mg/dL Glucose 108 H 110 (74-99) mg/dL Calcium 12.4 H 13.1 H* (8.4-10.2) mg/dL Adrenal panel 08/23/21 08/24/21 Range/Units 23:15 05:47 Sodium 134 L 139 (137-145) mmol/L Potassium 3.5 3.9 (3.5-5.1) mmol/L Chloride 100 100 (98-107) mmol/L Carbon Dioxide 28 26.5 (22-30) mmol/L BUN 21 H 17.4 (7-17) mg/dL Creatinine 1.97 H 2.0 H (0.52-1.04) mg/dL Glucose 108 H 110 (74-99) mg/dL Calcium 12.4 H 13.1 H* (8.4-10.2) mg/dL Total Bilirubin 1.0 0.50 (0.2-1.3) mg/dL AST 34 22 (14-36) U/L ALT 23 25 (4-34) U/L Alkaline Phosphatase 70 65 (38-126) U/L Total Protein 7.2 6.8 (6.3-8.2) g/dL Albumin 3.8 3.9 (3.5-5.0) g/dL
[2021-08-24 17:15] LABS: Glucose,Whole Blood 158 mg/dL (75-99)
[2021-08-24] MEDS: amLODIPine 10 MG TAB PO SCH (18:05)
[2021-08-24 18:12] LABS: Ionized Calcium 6.4 mg/dL (4.5-5.3)
[2021-08-24 18:34] LABS: Basophils % (A) 0 %; Eosinophils # (A) 0.2 k/uL (0-0.7); Eosinophils % (A) 3 %; HCT 38.4 % (34.0-46.0); HGB 12.6 gm/dL (11.4-16.0); Lymphocytes # (A) 1.6 k/uL (1.0-4.8); Lymphocytes % (A) 22 %; MCH 29.9 pg (25.0-35.0); MCHC 32.8 g/dL (31.0-37.0); MCV 91.4 fL (80.0-100.0); Mean Platelet Volume 8.1; Monocytes # (A) 0.5 k/uL (0-1.0); Monocytes % (A) 7 %; Neutrophils # (A) 4.9 k/uL (1.3-7.7); Neutrophils % (A) 68 %; Platelet Count 234 k/uL (150-450); RBC 4.21 m/uL (3.80-5.40); RDW 14.7 % (11.5-15.5); WBC 7.3 k/uL (3.8-10.6)
[2021-08-24 19:48] LABS: Erythrocyte Sedimentation Rate 29 mm/hr (0-20)
[2021-08-24 20:30] LABS: Glucose,Whole Blood 170 mg/dL (75-99)
[2021-08-24 20:42] LABS: C Reactive Protein 1.5 mg/dL (<1.0); LDH 570 U/L (313-618); Uric Acid 10.7 mg/dL (3.7-7.4)
[2021-08-24] MEDS: ATORVASTATIN 40 MG TAB PO SCH (21:04)
[2021-08-24] MEDS ORDERED: hydrALAZINE HCL 25 MG TAB PO STA (21:50)
[2021-08-24] MEDS: INSULIN DETEMIR (LEVEMIR) 100 UNIT/ML SYR SQ SCH (22:38)
[2021-08-24 23:43] LABS: % Iron Saturation 15.79 (12.00-45.00); Iron 56 ug/dL (50-170); Total Iron Binding Capacity 353 ug/dL (228-460)
[2021-08-24 23:47] LABS: Rheumatoid Factor, Qnt <10 IU/mL (0-15)
[2021-08-25] MEDS: HEPARIN SODIUM,PORCINE/PF 5,000 UNIT/0.5 ML SYRINGE SQ SCH ×3 (02:02→15:47)
[2021-08-25 07:31] LABS: Glucose,Whole Blood 107 mg/dL (75-99)
[2021-08-25] MEDS: amLODIPine 10 MG TAB PO SCH (07:35)
[2021-08-25] MEDS: HYDROcodone/APAP 7.5-325MG 1 EACH TAB PO PRN ×2 (07:35→20:10)
[2021-08-25] MEDS: hydrALAZINE HCL 25 MG TAB PO SCH ×2 (07:36→22:11)
[2021-08-25] MEDS: GABAPENTIN 300 MG CAP PO SCH ×2 (07:36→22:11)
[2021-08-25] MEDS: SODIUM CHLORIDE 0.9% 1,000 ML IV SCH ×3 (07:37→17:46)
[2021-08-25] MEDS: INSULIN ASPART (NovoLOG) 100 UNIT/ML VIAL SQ SCH ×4 (07:38→22:12)
[2021-08-25 08:07] LABS: Ionized Calcium 6.2 mg/dL (4.5-5.3)
[2021-08-25 08:16] LABS: ALT 20 U/L (4-34); AST 24 U/L (14-36); African American GFR (CKD) 31 (>60 ml/min/1.73 sqM); Albumin 3.4 g/dL (3.5-5.0); Alkaline Phosphatase 59 U/L (38-126); Anion Gap 6 mmol/L; Blood Urea Nitrogen 13 mg/dL (7-17); Calcium 10.6 mg/dL (8.4-10.2); Carbon Dioxide 26 mmol/L (22-30); Chloride 105 mmol/L (98-107); Globulin 3.3 g/dL; Glucose 93 mg/dL (74-99); Magnesium 1.9 mg/dL (1.6-2.3); Non-African American GFR(CKD) 27 (>60 ml/min/1.73 sqM); Phosphorus 2.5 mg/dL (2.5-4.5); Potassium 3.7 mmol/L (3.5-5.1); Sodium 137 mmol/L (137-145); Total Bilirubin 0.7 mg/dL (0.2-1.3); Total Protein 6.7 g/dL (6.3-8.2)
[2021-08-25] MEDS: POTASSIUM BICARBONATE/CIT AC 20 MEQ TABLET.EFF PO SCH (09:34)
[2021-08-25 11:57] LABS: Basophils # (A) 0.06 X 10*3/uL (0.00-0.10); Basophils % (A) 0.9 %; Eosinophils # (A) 0.34 X 10*3/uL (0.04-0.35); HCT 34.1 % (37.2-46.3); HGB 10.8 g/dL (12.0-15.0); Immature Grans, Automated 0.4 %; Lymphocytes # (A) 2.29 X 10*3/uL (0.90-5.00); Lymphocytes % (A) 33.8 %; MCH 29.1 pg (27.0-32.0); MCHC 31.7 g/dL (32.0-37.0); MCV 91.9 fL (80.0-97.0); Mean Platelet Volume 11.4 fL (9.5-12.2); Monocytes # (A) 0.66 X 10*3/uL (0.20-1.00); Monocytes % (A) 9.7 %; NRBC Per 100 WBC 0 /100 WBCS (0.0-0.0); Neutrophils # (A) 3.39 X 10*3/uL (1.80-7.70); Neutrophils % (A) 50.2 %; Platelet Count 228 X 10*3/uL (140-440); RBC 3.71 X 10*6/uL (4.10-5.20); RDW 14.8 % (11.5-14.5); WBC 6.77 X 10*3/uL (4.50-10.00)
[2021-08-25] MEDS: FOLIC ACID 1 MG TAB PO SCH (12:10)
[2021-08-25] MEDS: CYANOCOBALAMIN 1,000 MCG/ML 1 ML VIAL IM SCH (12:10)
--- NOTE | 2021-08-25 12:21 | P.PN ---
Subjective Progress Note Date: 08/25/21 No new complaints today. Pending Heme/Onc eval. PTH was low normal c/w non- PTH mediated hypercalcemia concerning for lymphoma or granulomatous disease. CT C/A/P demonstrated splenomegaly with para-aortic lymph node concerning for lymphoma. Gen: awake, alert HEENT: normocephalic, atraumatic, good hearing acuity, moist mucous membranes Resp: good air exchange, breathing comfortably with no accessory muscle use CVS: good distal perfusion x 4, GI: soft, NTTP, ND : no SPT, no CVAT, riley catheter not present MSK: no pitting edema, no clubbing Neuro: non-focal, moving all extremities Psych: cooperative, euthymic mood Assessment/plan: Non-PTH mediated Hypercalcemia -Obtain workup including myeloma -CT C/A/P with splenomegaly with heterogenousness and para-aortic lymph node concerning for lymphoma -Heme/Onc consult pending -Surgery consulted for biopsy -rec'd calcitonin and pamidronate on 08/24 -Ca today: 10.6 -continue IVF Hypokalemia, resolved -Replace and monitor Kidney injury, acute versus chronic -Creatinine 1.97, previously 0.7 in 2016 -Maybe due to underlying myeloma versus poor oral intake -continue IVF Chronic conditions: Type II DM, hypertension, hyperlipidemia -Continue with home meds -Insulin sliding scale and blood glucose monitoring -Check A1c DVT prophylaxis -Heparin subcu CODE STATUS: Full Code Discussed with: Patient Anticipated discharge place: Home Objective - Vital Signs Vital signs: Vital Signs Temp 97.8 F 08/25/21 04:43 Pulse 62 08/25/21 08:30 Resp 16 08/25/21 08:30 BP 149/82 08/25/21 07:41 Pulse Ox 94 L 08/25/21 04:43 Intake & Output 08/24/21 08/25/21 08/25/21 18:59 06:59 18:59 Intake Total 120 Output Total 600 Balance -480 Intake: Oral 120 Output: Urine 600 Other: Voiding Method Bedside Commode Bedside Commode Bedside Commode # Voids 1 1 # Bowel Movements 1 - Labs CBC & Chem 7: 08/25/21 06:54 08/25/21 06:54 Labs: Abnormal Lab Results - Last 24 Hours (Table) 08/24/21 08/24/21 08/24/21 Range/Units 17:13 17:26 17:26 RBC (4.10-5.20) X 10*6/uL Hgb (12.0-15.0) g/dL Hct (37.2-46.3) % MCHC (32.0-37.0) g/dL RDW (11.5-14.5) % ESR 29 H (0-20) mm/hr Creatinine (0.52-1.04) mg/dL POC Glucose (mg/dL) 158 H (75-99) mg/dL Uric Acid 10.7 H (3.7-7.4) mg/dL Calcium (8.4-10.2) mg/dL Ionized Calcium Prince 6.4 H* (4.5-5.3) mg/dL C-Reactive Protein 1.5 H (<1.0) mg/dL Albumin (3.5-5.0) g/dL Vitamin B12 168.0 L (200.0-944.0) pg/mL IgA (60.0-350.0) mg/dL 08/24/21 08/24/21 08/25/21 Range/Units 17:26 20:28 06:54 RBC 3.71 L (4.10-5.20) X 10*6/uL Hgb 10.8 L (12.0-15.0) g/dL Hct 34.1 L (37.2-46.3) % MCHC 31.7 L (32.0-37.0) g/dL RDW 14.8 H (11.5-14.5) % ESR (0-20) mm/hr Creatinine (0.52-1.04) mg/dL POC Glucose (mg/dL) 170 H (75-99) mg/dL Uric Acid (3.7-7.4) mg/dL Calcium (8.4-10.2) mg/dL Ionized Calcium Prince (4.5-5.3) mg/dL C-Reactive Protein (<1.0) mg/dL Albumin (3.5-5.0) g/dL Vitamin B12 (200.0-944.0) pg/mL IgA 393.0 H (60.0-350.0) mg/dL 08/25/21 08/25/21 Range/Units 06:54 07:19 RBC (4.10-5.20) X 10*6/uL Hgb (12.0-15.0) g/dL Hct (37.2-46.3) % MCHC (32.0-37.0) g/dL RDW (11.5-14.5) % ESR (0-20) mm/hr Creatinine 1.82 H (0.52-1.04) mg/dL POC Glucose (mg/dL) 107 H (75-99) mg/dL Uric Acid (3.7-7.4) mg/dL Calcium 10.6 H (8.4-10.2) mg/dL Ionized Calcium Prince 6.2 H* (4.5-5.3) mg/dL C-Reactive Protein (<1.0) mg/dL Albumin 3.4 L (3.5-5.0) g/dL Vitamin B12 (200.0-944.0) pg/mL IgA (60.0-350.0) mg/dL
[2021-08-25 12:33] LABS: Glucose,Whole Blood 108 mg/dL (75-99)
--- NOTE | 2021-08-25 14:28 | P.PN ---
Subjective Progress Note Date: 08/25/21 Patient denies any clinical lymphadenopathy along the neck or head. Calcium level is elevated. Pending hematology oncology consultation. No acute surgical intervention at this time. Objective - Vital Signs Vital signs: Vital Signs Temp 97.5 F L 08/25/21 12:58 Pulse 61 08/25/21 13:27 Resp 19 08/25/21 13:27 BP 133/66 08/25/21 12:58 Pulse Ox 97 08/25/21 12:58 Intake & Output 08/24/21 08/25/21 08/25/21 18:59 06:59 18:59 Intake Total 120 240 Output Total 600 Balance -480 240 Intake: Oral 120 240 Output: Urine 600 Other: Voiding Method Bedside Commode Bedside Commode Bedside Commode # Voids 1 1 3 # Bowel Movements 1 - Labs CBC & Chem 7: 08/25/21 06:54 08/25/21 06:54 Labs: Abnormal Lab Results - Last 24 Hours (Table) 08/24/21 08/24/21 08/24/21 Range/Units 17:13 17:26 17:26 RBC (4.10-5.20) X 10*6/uL Hgb (12.0-15.0) g/dL Hct (37.2-46.3) % MCHC (32.0-37.0) g/dL RDW (11.5-14.5) % ESR 29 H (0-20) mm/hr Creatinine (0.52-1.04) mg/dL POC Glucose (mg/dL) 158 H (75-99) mg/dL Uric Acid 10.7 H (3.7-7.4) mg/dL Calcium (8.4-10.2) mg/dL Ionized Calcium Prince 6.4 H* (4.5-5.3) mg/dL C-Reactive Protein 1.5 H (<1.0) mg/dL Albumin (3.5-5.0) g/dL Vitamin B12 168.0 L (200.0-944.0) pg/mL IgA (60.0-350.0) mg/dL 08/24/21 08/24/21 08/25/21 Range/Units 17:26 20:28 06:54 RBC 3.71 L (4.10-5.20) X 10*6/uL Hgb 10.8 L (12.0-15.0) g/dL Hct 34.1 L (37.2-46.3) % MCHC 31.7 L (32.0-37.0) g/dL RDW 14.8 H (11.5-14.5) % ESR (0-20) mm/hr Creatinine (0.52-1.04) mg/dL POC Glucose (mg/dL) 170 H (75-99) mg/dL Uric Acid (3.7-7.4) mg/dL Calcium (8.4-10.2) mg/dL Ionized Calcium [place] (4.5-5.3) mg/dL C-Reactive Protein (<1.0) mg/dL Albumin (3.5-5.0) g/dL Vitamin B12 (200.0-944.0) pg/mL IgA 393.0 H (60.0-350.0) mg/dL 08/25/21 08/25/21 08/25/21 Range/Units 06:54 07:19 12:09 RBC (4.10-5.20) X 10*6/uL Hgb (12.0-15.0) g/dL Hct (37.2-46.3) % MCHC (32.0-37.0) g/dL RDW (11.5-14.5) % ESR (0-20) mm/hr Creatinine 1.82 H (0.52-1.04) mg/dL POC Glucose (mg/dL) 107 H 108 H (75-99) mg/dL Uric Acid (3.7-7.4) mg/dL Calcium 10.6 H (8.4-10.2) mg/dL Ionized Calcium [place] 6.2 H* (4.5-5.3) mg/dL C-Reactive Protein (<1.0) mg/dL Albumin 3.4 L (3.5-5.0) g/dL Vitamin B12 (200.0-944.0) pg/mL IgA (60.0-350.0) mg/dL
[2021-08-25 17:26] LABS: Glucose,Whole Blood 134 mg/dL (75-99)
--- NOTE | 2021-08-25 20:04 | P.CONS ---
History of Present Illness - Reason for Consult Consult date: 08/25/21 Concern Lymphoma, Hypercacemia - Chief Complaint Hypercalcemia - History of Present Illness We were asked to see this patient for hypercalcemia and adenopathy in the [place]- aortic area. Concern of underlying malignancy. CT scan revealed nodular liver and abnormal periarortic lymph nodes. Because of these findings we we asked to further evaluate Review of Systems All systems: negative Constitutional: Reports as per HPI Past Medical History Past Medical History: Diabetes Mellitus, Hyperlipidemia, Hypertension Additional Past Medical History / Comment(s): arthritis History of Any Multi-Drug Resistant Organisms: None Reported Past Surgical History: Hysterectomy, Orthopedic Surgery Additional Past Surgical History / Comment(s): 06-05-15 TOTAL RT KNEE ARTHROPLASTY. RIGHT SHOULDER ROTATOR CUFF,RADHA CATARACT SURGERY,RIGHT KNEE ARTHROSCOPIC Past Anesthesia/Blood Transfusion Reactions: No Reported Reaction Additional Past Anesthesia/Blood Transfusion Reaction / Comm: "Hard to wake up" Past Psychological History: No Psychological Hx Reported Smoking Status: Never smoker Past Alcohol Use History: None Reported Past Drug Use History: None Reported - Past Family History Father Family Medical History: Cancer Additional Family Medical History / Comment(s): PROSTATE Mother Family Medical History: CVA/TIA Medications and Allergies Home Medications Medication Instructions Recorded Confirmed Type Losartan Potassium 50 mg PO DAILY 01/11/14 08/23/21 History metFORMIN HCL [Glucophage] 500 mg PO BID 01/11/14 08/23/21 History Insulin Detemir [Levemir Flextouch 27 units SQ HS 02/20/16 08/23/21 History Pen] Atorvastatin [Lipitor] 40 mg PO HS 08/23/21 08/23/21 History Ergocalciferol (Vitamin D2) 1,250 mcg PO DIAZ 08/23/21 08/23/21 History [Drisdol (50,000 Iu)] Gabapentin [Neurontin] 300 mg PO BID 08/23/21 08/23/21 History HYDROcodone/APAP 7.5-325MG [[place] 1 tab PO TID 08/23/21 08/23/21 History 7.5-325] Ibuprofen [Motrin Ib] 400 mg PO Q8H PRN 08/23/21 08/23/21 History Pioglitazone [Actos] 45 mg PO DAILY 08/23/21 08/23/21 History hydroCHLOROthiazide [Hydrodiuril] 25 mg PO DAILY 08/23/21 08/23/21 History Allergies Allergy/AdvReac Type Severity Reaction Status Date / Time PAM Inhibitors Allergy Cough Verified 08/23/21 23:19 adhesive Allergy Rash/Hives,SKIN Verified 08/23/21 23:19 BLISTERS clarithromycin [From Biaxin] Allergy INSOMINA Verified 08/23/21 23:19 meloxicam [From Mobic] Allergy Itching Verified 08/23/21 23:19 naproxen Allergy Itching Verified 08/23/21 23:19 Physical Exam Vitals: Vital Signs Temp Pulse Resp BP Pulse Ox 08/25/21 08:30 62 16 08/25/21 07:41 62 149/82 08/25/21 04:43 97.8 F 63 16 121/60 94 L 08/25/21 02:00 129/54 08/24/21 21:00 97.8 F 73 16 177/84 95 08/24/21 17:12 97.8 F 80 18 180/113 93 L 08/24/21 15:00 97.5 F L 66 16 174/91 96 08/24/21 14:00 61 18 Intake and Output 08/24/21 08/25/21 08/25/21 22:59 06:59 14:59 Other: Voiding Method Bedside Commode Bedside Commode # Voids 1 - Constitutional General appearance: cooperative, morbidly obese, no acute distress - EENT Eyes: EOMI ENT: NA/AT - Neck cervical and axilla without palpipable adenopathy - Respiratory Respiratory: bilateral: diminished - Cardiovascular Rhythm: regularly irregular - Gastrointestinal General gastrointestinal: soft - Integumentary Integumentary: pale - Neurologic Neurologic: CNII-XII intact - Musculoskeletal Musculoskeletal: generalized weakness - Psychiatric Psychiatric: A&O x's 3, appropriate affect Results CBC & Chem 7: 08/26/21 05:28 08/26/21 05:28 Labs: Abnormal Lab Results - Last 24 Hours (Table) 08/24/21 08/24/21 08/24/21 Range/Units 11:32 17:13 17:26 ESR 29 H (0-20) mm/hr Creatinine (0.52-1.04) mg/dL POC Glucose (mg/dL) 107 H 158 H (75-99) mg/dL Uric Acid (3.7-7.4) mg/dL Calcium (8.4-10.2) mg/dL Ionized Calcium Prince (4.5-5.3) mg/dL C-Reactive Protein (<1.0) mg/dL Albumin (3.5-5.0) g/dL Vitamin B12 (200.0-944.0) pg/mL IgA (60.0-350.0) mg/dL 08/24/21 08/24/21 08/24/21 Range/Units 17:26 17:26 20:28 ESR (0-20) mm/hr Creatinine (0.52-1.04) mg/dL POC Glucose (mg/dL) 170 H (75-99) mg/dL Uric Acid 10.7 H (3.7-7.4) mg/dL Calcium (8.4-10.2) mg/dL Ionized Calcium Prince 6.4 H* (4.5-5.3) mg/dL C-Reactive Protein 1.5 H (<1.0) mg/dL Albumin (3.5-5.0) g/dL Vitamin B12 168.0 L (200.0-944.0) pg/mL IgA 393.0 H (60.0-350.0) mg/dL 08/25/21 08/25/21 Range/Units 06:54 07:19 ESR (0-20) mm/hr Creatinine 1.82 H (0.52-1.04) mg/dL POC Glucose (mg/dL) 107 H (75-99) mg/dL Uric Acid (3.7-7.4) mg/dL Calcium 10.6 H (8.4-10.2) mg/dL Ionized Calcium Prince 6.2 H* (4.5-5.3) mg/dL C-Reactive Protein (<1.0) mg/dL Albumin 3.4 L (3.5-5.0) g/dL Vitamin B12 (200.0-944.0) pg/mL IgA (60.0-350.0) mg/dL CT scan - abdomen: report reviewed CT scan - pelvis: report reviewed Assessment and Plan Plan: Bone scan for further work-up of hypercalcemia Anemia work-up ordered and evidence of B12 and Folate deficiency - Supplements ordered Tissue biopsy would be needed if malignancy is expected, however due to area this is a high risk, therefore studies to rule out other possibilities have been ordered. Await results in interim. Will discuss with IR tomorrow for best pathology approach
[2021-08-25 20:42] LABS: Glucose,Whole Blood 123 mg/dL (75-99)
[2021-08-25] MEDS: ATORVASTATIN 40 MG TAB PO SCH (22:11)
[2021-08-25] MEDS: INSULIN DETEMIR (LEVEMIR) 100 UNIT/ML SYR SQ SCH (22:12)
[2021-08-26] MEDS: HEPARIN SODIUM,PORCINE/PF 5,000 UNIT/0.5 ML SYRINGE SQ SCH ×4 (00:23→17:34)
[2021-08-26] MEDS: SODIUM CHLORIDE 0.9% 1,000 ML IV SCH ×4 (01:59→20:10)
[2021-08-26] MEDS: HYDROcodone/APAP 7.5-325MG 1 EACH TAB PO PRN ×2 (05:56→20:09)
[2021-08-26 07:49] LABS: Glucose,Whole Blood 108 mg/dL (75-99)
[2021-08-26] MEDS: INSULIN ASPART (NovoLOG) 100 UNIT/ML VIAL SQ SCH ×4 (07:54→21:46)
[2021-08-26] MEDS: hydrALAZINE HCL 25 MG TAB PO SCH ×2 (09:20→21:46)
[2021-08-26] MEDS: GABAPENTIN 300 MG CAP PO SCH ×2 (09:20→21:46)
[2021-08-26] MEDS: POTASSIUM BICARBONATE/CIT AC 20 MEQ TABLET.EFF PO SCH (09:20)
[2021-08-26] MEDS: amLODIPine 10 MG TAB PO SCH (09:20)
[2021-08-26] MEDS: FOLIC ACID 1 MG TAB PO SCH (09:20)
[2021-08-26] MEDS: CYANOCOBALAMIN 1,000 MCG/ML 1 ML VIAL IM SCH (09:23)
[2021-08-26 09:39] LABS: ALT 22 U/L (4-34); AST 29 U/L (14-36); African American GFR (CKD) 33 (>60 ml/min/1.73 sqM); Albumin 3.3 g/dL (3.5-5.0); Alkaline Phosphatase 62 U/L (38-126); Anion Gap 6 mmol/L; Blood Urea Nitrogen 12 mg/dL (7-17); Calcium 10.3 mg/dL (8.4-10.2); Carbon Dioxide 21 mmol/L (22-30); Chloride 110 mmol/L (98-107); Globulin 3.4 g/dL; Glucose 110 mg/dL (74-99); Non-African American GFR(CKD) 28 (>60 ml/min/1.73 sqM); Potassium 3.7 mmol/L (3.5-5.1); Sodium 137 mmol/L (137-145); Total Bilirubin 0.7 mg/dL (0.2-1.3); Total Protein 6.7 g/dL (6.3-8.2)
[2021-08-26 09:40] LABS: Basophils # (A) 0.1 k/uL (0-0.2); Basophils % (A) 1 %; Eosinophils # (A) 0.3 k/uL (0-0.7); Eosinophils % (A) 6 %; HCT 35.6 % (34.0-46.0); HGB 11.3 gm/dL (11.4-16.0); Hypochromasia Moderate; Lymphocytes # (A) 1.6 k/uL (1.0-4.8); Lymphocytes % (A) 28 %; MCH 30.6 pg (25.0-35.0); MCHC 31.8 g/dL (31.0-37.0); MCV 96.3 fL (80.0-100.0); Mean Platelet Volume 8.8; Monocytes # (A) 0.4 k/uL (0-1.0); Monocytes % (A) 7 %; Neutrophils # (A) 3.1 k/uL (1.3-7.7); Neutrophils % (A) 57 %; Platelet Count 223 k/uL (150-450); RDW 14.9 % (11.5-15.5); WBC 5.5 k/uL (3.8-10.6)
[2021-08-26] MEDS ORDERED: RASBURICASE 6 MG in SODIUM CHLORIDE 0.9% 46 ML IV ONE (09:45)
[2021-08-26] MEDS ORDERED: HYDROmorphone 1 MG/ML 1 ML SYRINGE IM PRN (09:45)
[2021-08-26] MEDS ORDERED: LORazepam 2 MG/ML INJ IV PRN (09:46)
--- NOTE | 2021-08-26 10:47 | P.PN ---
Subjective Progress Note Date: 08/26/21 No new complaints today. Pending Heme/Onc eval. PTH was low normal c/w non- PTH mediated hypercalcemia concerning for lymphoma or granulomatous disease. CT C/A/P demonstrated splenomegaly with para-aortic lymph node concerning for lymphoma. Gen: awake, alert HEENT: normocephalic, atraumatic, good hearing acuity, moist mucous membranes Resp: good air exchange, breathing comfortably with no accessory muscle use CVS: good distal perfusion x 4, GI: soft, NTTP, ND : no SPT, no CVAT, riley catheter not present MSK: no pitting edema, no clubbing Neuro: non-focal, moving all extremities Psych: cooperative, euthymic mood Assessment/plan: Non-PTH mediated Hypercalcemia -Obtain workup including myeloma -CT C/A/P with splenomegaly with heterogenousness and para-aortic lymph node concerning for lymphoma -Heme/Onc consult appreciated -Surgery consulted for biopsy, deferring for now due to high risk -rec'd calcitonin and pamidronate on 08/24 -Ca today: 10.3 -continue IVF -bone scan pending Hypokalemia, resolved -Replace and monitor Kidney injury, acute versus chronic -Creatinine 1.73, previously 0.7 in 2016, improving from peak Cr of 2.0 -Maybe due to underlying myeloma versus poor oral intake -continue IVF Chronic conditions: Type II DM, hypertension, hyperlipidemia -Continue with home meds -Insulin sliding scale and blood glucose monitoring -Check A1c DVT prophylaxis -Heparin subcu CODE STATUS: Full Code Discussed with: Patient Anticipated discharge place: Home Objective - Vital Signs Vital signs: Vital Signs Temp 97.0 F L 08/26/21 05:00 Pulse 75 08/26/21 05:00 Resp 18 08/26/21 05:00 BP 173/75 08/26/21 05:00 Pulse Ox 96 08/26/21 05:00 Intake & Output 08/25/21 08/26/21 08/26/21 18:59 06:59 18:59 Intake Total 780 2160 Balance 780 2160 Intake: Intake, IV Titration 1560 Amount Sodium Chloride 0.9% 1, 1560 000 ml @ 130 mls/hr IV . [id number] TENZIN Rx#:[id number] Oral 780 600 Other: Voiding Method Bedside Commode Toilet Toilet # Voids 4 3 - Labs CBC & Chem 7: 08/26/21 05:28 08/26/21 05:28 Labs: Abnormal Lab Results - Last 24 Hours (Table) 08/25/21 08/25/21 08/25/21 Range/Units 06:54 12:09 17:08 RBC 3.71 L (4.10-5.20) X 10*6/uL Hgb 10.8 L (12.0-15.0) g/dL Hct 34.1 L (37.2-46.3) % MCHC 31.7 L (32.0-37.0) g/dL RDW 14.8 H (11.5-14.5) % Chloride (98-107) mmol/L Carbon Dioxide (22-30) mmol/L Creatinine (0.52-1.04) mg/dL Glucose (74-99) mg/dL POC Glucose (mg/dL) 108 H 134 H (75-99) mg/dL Calcium (8.4-10.2) mg/dL Albumin (3.5-5.0) g/dL Homocysteine (4.00-14.00) umol/L 08/25/21 08/26/21 08/26/21 Range/Units 20:37 05:28 05:28 RBC 3.70 L (4.10-5.20) X 10*6/uL Hgb 11.3 L (12.0-15.0) g/dL Hct (37.2-46.3) % MCHC (32.0-37.0) g/dL RDW (11.5-14.5) % Chloride (98-107) mmol/L Carbon Dioxide (22-30) mmol/L Creatinine (0.52-1.04) mg/dL Glucose (74-99) mg/dL POC Glucose (mg/dL) 123 H (75-99) mg/dL Calcium (8.4-10.2) mg/dL Albumin (3.5-5.0) g/dL Homocysteine 40.90 H (4.00-14.00) umol/L 08/26/21 08/26/21 Range/Units 05:28 07:46 RBC (4.10-5.20) X 10*6/uL Hgb (12.0-15.0) g/dL Hct (37.2-46.3) % MCHC (32.0-37.0) g/dL RDW (11.5-14.5) % Chloride 110 H (98-107) mmol/L Carbon Dioxide 21 L (22-30) mmol/L Creatinine 1.73 H (0.52-1.04) mg/dL Glucose 110 H (74-99) mg/dL POC Glucose (mg/dL) 108 H (75-99) mg/dL Calcium 10.3 H (8.4-10.2) mg/dL Albumin 3.3 L (3.5-5.0) g/dL Homocysteine (4.00-14.00) umol/L
[2021-08-26 10:49] LABS: Free Kappa Lt Chain Qnt, Urine 8.48 mg/dL (0.00-3.29); Free Lambda Lt Chain Qt, Urine 1.68 mg/dL (0.00-0.38)
[2021-08-26 10:49] LABS: Free Kappa Lt Chain Qnt, Serum 4.33 mg/dL (0.33-1.94)
[2021-08-26 12:29] LABS: Glucose,Whole Blood 125 mg/dL (75-99)
[2021-08-26 12:50] LABS: Albumin 3.54 g/dL (3.80-4.90); Gamma Globulin 1.14 g/dL (0.70-1.50)
[2021-08-26] MEDS ORDERED: HYDROmorphone 1 MG/ML 1 ML SYRINGE IVP PRN (13:12)
--- NOTE | 2021-08-26 14:13 | P.PN ---
Subjective Progress Note Date: 08/26/21 CHIEF COMPLAINT: Periaortic adenopathy HISTORY OF PRESENT ILLNESS: Patient is undergoing workup for suspected lymphoma. Social service consulted for possible biopsy of the periaortic lymph node. Oncology is following. They've ordered a bone scan and have consult interventional radiology for possible biopsy of lymph node. Patient sitting in bedside chair. Denies any abdominal pain. Denies any nausea or vomiting. Afebrile tolerating regular diet. WBC 5.5 hemoglobin 11.3 platelets 223 calcium 10.3 PHYSICAL EXAM: VITAL SIGNS: Reviewed GENERAL: Well-developed in no acute distress. HEENT: No sclera icterus. Extraocular movements grossly intact. Moist buccal mucosa. Head is atraumatic, normocephalic. Hears conversational speech. No nasal drainage. NECK: Supple without lymphadenopathy. CHEST: Non-labored respirations and equal bilateral excursions. CARDIOVASCULAR: Palpable 2+ radial pulses. ABDOMEN: Soft. Nondistended. Nontender. MUSCULOSKELETAL: No clubbing or cyanosis. NEUROLOGIC: No focal or lateralizing signs. Cranial nerves II through XII grossly intact. PSYCH: Appropriate affect. Alert and oriented to person, place and time. SKIN: Well perfused. Good skin turgor. ASSESSMENT: 1. Periaortic lymph node and concerns of possible lymphoma noted on CAT scan 2. Possible spleen lesions 3. Hypercalcemia PLAN: -No surgical intervention planned -Continue oncology workup -Bone scan scheduled for today per oncology as well as interventional radiology on consult for possible biopsy of periaortic lymph node -Continue supportive care Physician Smoking Pipe Maker note has been reviewed by physician. Signing provider agrees with the documented findings, assessment, and plan of care. Objective - Vital Signs Vital signs: Vital Signs Temp 97.7 F 08/26/21 13:00 Pulse 64 08/26/21 13:00 Resp 18 08/26/21 13:00 BP 141/69 08/26/21 13:00 Pulse Ox 97 08/26/21 13:00 Intake & Output 08/25/21 08/26/21 08/26/21 18:59 06:59 18:59 Intake Total 780 2160 Balance 780 2160 Intake: Intake, IV Titration 1560 Amount Sodium Chloride 0.9% 1, 1560 000 ml @ 130 mls/hr IV . Q7H42M [facility] Rx#:[id number] Oral 780 600 Other: Voiding Method Bedside Commode Toilet Toilet # Voids 4 3 - Labs CBC & Chem 7: 08/26/21 05:28 08/26/21 05:28 Labs: Abnormal Lab Results - Last 24 Hours (Table) 08/24/21 08/24/21 08/24/21 Range/Units 05:47 06:00 17:26 RBC (3.80-5.40) m/uL Hgb (11.4-16.0) gm/dL Chloride (98-107) mmol/L Carbon Dioxide (22-30) mmol/L Creatinine (0.52-1.04) mg/dL Glucose (74-99) mg/dL POC Glucose (mg/dL) (75-99) mg/dL Calcium (8.4-10.2) mg/dL Albumin (3.5-5.0) g/dL Albumin (PEP) 3.54 L (3.80-4.90) g/dL Homocysteine (4.00-14.00) umol/L U Free [place] Light Ch 8.48 H (0.00-3.29) mg/dL U Free [place] Light Ch 1.68 H (0.00-0.38) mg/dL Free [place] LC, Quant 4.33 H (0.33-1.94) mg/dL Free [place]ambda LC, Quant 4.70 H (0.57-2.63) mg/dL 08/25/21 08/25/21 08/26/21 Range/Units 17:08 20:37 05:28 RBC (3.80-5.40) m/uL Hgb (11.4-16.0) gm/dL Chloride (98-107) mmol/L Carbon Dioxide (22-30) mmol/L Creatinine (0.52-1.04) mg/dL Glucose (74-99) mg/dL POC Glucose (mg/dL) 134 H 123 H (75-99) mg/dL Calcium (8.4-10.2) mg/dL Albumin (3.5-5.0) g/dL Albumin (PEP) (3.80-4.90) g/dL Homocysteine 40.90 H (4.00-14.00) umol/L U Free [place] Light Ch (0.00-3.29) mg/dL U Free [place] Light Ch (0.00-0.38) mg/dL Free [place] LC, Quant (0.33-1.94) mg/dL Free [place]ambda LC, Quant (0.57-2.63) mg/dL 08/26/21 08/26/21 08/26/21 Range/Units 05:28 05:28 07:46 RBC 3.70 L (3.80-5.40) m/uL Hgb 11.3 L (11.4-16.0) gm/dL Chloride 110 H (98-107) mmol/L Carbon Dioxide 21 L (22-30) mmol/L Creatinine 1.73 H (0.52-1.04) mg/dL Glucose 110 H (74-99) mg/dL POC Glucose (mg/dL) 108 H (75-99) mg/dL Calcium 10.3 H (8.4-10.2) mg/dL Albumin 3.3 L (3.5-5.0) g/dL Albumin (PEP) (3.80-4.90) g/dL Homocysteine (4.00-14.00) umol/L U Free [place] Light Ch (0.00-3.29) mg/dL U Free [place] Light Ch (0.00-0.38) mg/dL Free [place] LC, Quant (0.33-1.94) mg/dL Free [place]ambda LC, Quant (0.57-2.63) mg/dL 08/26/21 Range/Units 11:59 RBC (3.80-5.40) m/uL Hgb (11.4-16.0) gm/dL Chloride (98-107) mmol/L Carbon Dioxide (22-30) mmol/L Creatinine (0.52-1.04) mg/dL Glucose (74-99) mg/dL POC Glucose (mg/dL) 125 H (75-99) mg/dL Calcium (8.4-10.2) mg/dL Albumin (3.5-5.0) g/dL Albumin (PEP) (3.80-4.90) g/dL Homocysteine (4.00-14.00) umol/L U Free [place] Light Ch (0.00-3.29) mg/dL U Free [place] Light Ch (0.00-0.38) mg/dL Free [place] LC, Quant (0.33-1.94) mg/dL Free Lambda LC, Quant (0.57-2.63) mg/dL
--- NOTE | 2021-08-26 15:06 | NM ---
EXAMINATION TYPE: NM bone scan whole body DATE OF EXAM: 08/26/2021 COMPARISON: CT 08/24/2021 HISTORY: 76-year-old female with hypercalcemia TECHNIQUE: Delayed whole-body scanning was performed following the injection of 24 mCi Tc 99m MDP. I mages acquired 6 hours post injection. FINDINGS: Photopenia at the right knee compatible with underlying knee arthroplasty. There is degenerative trac er activity at the left knee. Degenerative tracer activity of the left shoulder. No suspicious distri bution of activity to suggest osseous metastatic disease. IMPRESSION: No scintigraphic evidence for osseous metastatic disease.
[2021-08-26 17:18] LABS: Glucose,Whole Blood 137 mg/dL (75-99)
--- NOTE | 2021-08-26 18:26 | P.PN ---
Subjective Progress Note Date: 08/26/21 Principal diagnosis: Hypercalcemia Await labs this am, Uric acid increased Rasburicase ordered. Spoke with Radiology and planning for prone approach biopsy of lymph node, concern of lymphoma. Bone scan complete today and negative. Objective - Vital Signs Vital signs: Vital Signs Temp 97.0 F L 08/26/21 05:00 Pulse 75 08/26/21 05:00 Resp 18 08/26/21 05:00 BP 173/75 08/26/21 05:00 Pulse Ox 96 08/26/21 05:00 Intake & Output 08/25/21 08/26/21 08/26/21 18:59 06:59 18:59 Intake Total 780 2160 Balance 780 2160 Intake: Intake, IV Titration 1560 Amount Sodium Chloride 0.9% 1, 1560 000 ml @ 130 mls/hr IV . Q7H42M [facility] Rx#:[id number] Oral 780 600 Other: Voiding Method Bedside Commode Toilet # Voids 4 3 - Constitutional General appearance: Present: cooperative, morbidly obese, no acute distress - EENT Eyes: Present: PERRLA ENT: Present: NA/AT - Respiratory Respiratory: bilateral: diminished - Cardiovascular Rhythm: regularly irregular - Gastrointestinal General gastrointestinal: Present: tenderness - Integumentary Integumentary: Present: pale - Musculoskeletal Musculoskeletal: Present: generalized weakness - Psychiatric Psychiatric: Present: A&O x's 3, appropriate affect, intact judgment & insight - Additional findings Additional findings: Breast exam performed no abnormalities and no axilla or cervical adenopathy on palpation - Labs CBC & Chem 7: 08/26/21 05:28 08/26/21 05:28 Labs: Abnormal Lab Results - Last 24 Hours (Table) 08/25/21 08/25/21 08/25/21 Range/Units 06:54 12:09 17:08 RBC 3.71 L (4.10-5.20) X 10*6/uL Hgb 10.8 L (12.0-15.0) g/dL Hct 34.1 L (37.2-46.3) % MCHC 31.7 L (32.0-37.0) g/dL RDW 14.8 H (11.5-14.5) % POC Glucose (mg/dL) 108 H 134 H (75-99) mg/dL 08/25/21 08/26/21 Range/Units 20:37 07:46 RBC (4.10-5.20) X 10*6/uL Hgb (12.0-15.0) g/dL Hct (37.2-46.3) % MCHC (32.0-37.0) g/dL RDW (11.5-14.5) % POC Glucose (mg/dL) 123 H 108 H (75-99) mg/dL Assessment and Plan Plan: Bone scan for further work-up of hypercalcemia Anemia work-up ordered and evidence of B12 and Folate deficiency - Supplements ordered Tissue biopsy is needed, discussed with radiology and prone approach planned Bone scan negative Continue IVF Status post Rasburicase increased uric acid Dr. Cevallos: I have completed the full history and physical and developed the above impression and plan. agree with above dictation, dictated as a scribe.
--- NOTE | 2021-08-26 18:36 | P.PN ---
Progress Note - Text I saw and examined the patient,her bone scan is normal Hypercalcemia ,splenomegaly,periaortic nodes,finding are concerning for lymphoma Scheduled for CT guided biopsy tomorrow If LN biopsy could not be done or not diagnostic,may consider biopsy of splenic lesions,I could arrange for that as outpatient D/W the patient
[2021-08-26 20:27] LABS: Glucose,Whole Blood 140 mg/dL (75-99)
[2021-08-26] MEDS: ATORVASTATIN 40 MG TAB PO SCH (21:46)
[2021-08-26] MEDS: INSULIN DETEMIR (LEVEMIR) 100 UNIT/ML SYR SQ SCH (21:46)
[2021-08-27] MEDS: HEPARIN SODIUM,PORCINE/PF 5,000 UNIT/0.5 ML SYRINGE SQ SCH ×4 (01:34→16:51)
--- NOTE | 2021-08-27 01:43 | CT ---
EXAMINATION TYPE: CT brain aniya hyde con DATE OF EXAM: 08/27/2021 COMPARISON: HISTORY: Fall. Pain. CT DLP: mGycm Automated exposure control for dose reduction was used. Images of brain and cervical spine obtained without contrast. There is large right frontal scalp hematoma. This measures up to 1.3 cm in thickness. The calvarium i s intact. Ventricles have normal size. There is no mass effect or midline shift. There is no sign of intracrani al hemorrhage. The skull base is intact. There is normal aeration of the mastoid sinuses. The cervical vertebra have normal alignment. There is disc space narrowing at C6-7 with mild spurring . Facet joints are intact. Prevertebral soft tissues are intact. IMPRESSION: Mild degenerative disc changes in the lower cervical spine. No fracture. No acute intracranial abnormality. Right frontal scalp hematoma.
[2021-08-27] MEDS: HYDROcodone/APAP 7.5-325MG 1 EACH TAB PO PRN ×3 (03:57→21:54)
[2021-08-27 07:13] LABS: Glucose,Whole Blood 116 mg/dL (75-99)
[2021-08-27] MEDS: INSULIN ASPART (NovoLOG) 100 UNIT/ML VIAL SQ SCH ×4 (07:32→21:54)
[2021-08-27] MEDS: hydrALAZINE HCL 25 MG TAB PO SCH ×2 (08:02→21:54)
[2021-08-27] MEDS: GABAPENTIN 300 MG CAP PO SCH ×2 (08:02→21:54)
[2021-08-27] MEDS: CYANOCOBALAMIN 1,000 MCG/ML 1 ML VIAL IM SCH (08:02)
[2021-08-27] MEDS: FOLIC ACID 1 MG TAB PO SCH (08:02)
[2021-08-27] MEDS: amLODIPine 10 MG TAB PO SCH (08:02)
[2021-08-27] MEDS: POTASSIUM BICARBONATE/CIT AC 20 MEQ TABLET.EFF PO SCH (08:03)
[2021-08-27 09:08] LABS: Basophils # (A) 0.04 X 10*3/uL (0.00-0.10); Basophils % (A) 0.8 %; Eosinophils # (A) 0.28 X 10*3/uL (0.04-0.35); Eosinophils % (A) 5.5 %; HCT 31.2 % (37.2-46.3); Immature Grans, Automated 0.6 %; Lymphocytes # (A) 1.35 X 10*3/uL (0.90-5.00); Lymphocytes % (A) 26.5 %; MCH 29.5 pg (27.0-32.0); MCHC 32.1 g/dL (32.0-37.0); Mean Platelet Volume 11.3 fL (9.5-12.2); Monocytes # (A) 0.53 X 10*3/uL (0.20-1.00); Monocytes % (A) 10.4 %; NRBC Per 100 WBC 0 /100 WBCS (0.0-0.0); Neutrophils # (A) 2.87 X 10*3/uL (1.80-7.70); Neutrophils % (A) 56.2 %; Platelet Count 204 X 10*3/uL (140-440); RBC 3.39 X 10*6/uL (4.10-5.20); RDW 14.6 % (11.5-14.5)
[2021-08-27 09:38] LABS: Magnesium 1.8 mg/dL (1.5-2.4)
[2021-08-27 09:44] LABS: African American GFR (CKD) 39.1 (60.0-200.0); Anion Gap 9.9 mmol/L (10.00-18.00); BUN/Creat Ratio 6.6 Ratio (12.00-20.00); Blood Urea Nitrogen 9.9 mg/dL (9.0-27.0); Carbon Dioxide 22.1 mmol/L (20.0-27.5); Non-African American GFR(CKD) 33.7 (60.0-200.0); Potassium 3.7 mmol/L (3.5-5.5)
--- NOTE | 2021-08-27 10:04 | P.PN ---
Subjective Progress Note Date: 08/27/21 Principal diagnosis: suspect lymphoma Mrs. Ham is seen today in follow-up. She refused the biopsy of periaortic adenopathy. She states that she would rather go home, speak with her family and then meet with Dr. Gramajo about other potential biopsy options. Her calcium lev el is normal today. She is received elitek and her uric acid is normal. She was given 3 doses of parenteral B12 for deficiency and she has been started on oral for acid for elevated homocysteine levels. Patient took a sleeping pill last night, got up on her own and ended up falling and severely bruising her face. She is denying any pain, vision loss, headache. She denies any bleeding. Objective - Vital Signs Vital signs: Vital Signs Temp 97.6 F 08/27/21 05:00 Pulse 65 08/27/21 08:00 Resp 18 08/27/21 05:00 BP 153/83 08/27/21 08:00 Pulse Ox 95 08/27/21 05:00 Intake & Output 08/26/21 08/27/21 08/27/21 18:59 06:59 18:59 Intake Total 540 2060 Balance 540 2060 Intake: Intake, IV Titration 1560 Amount Sodium Chloride 0.9% 1, 1560 000 ml @ 130 mls/hr IV . Q7H42M [facility] Rx#:[id number] Oral 540 500 Other: Voiding Method Toilet Toilet # Voids 2 4 - Constitutional General appearance: Present: cooperative, no acute distress, obese - EENT EENT Comment(s): bilateral eye bruising and swelling, right > left, she is also noted to have a hematoma in the forehead/congregational area on the right Eyes: Present: anicteric sclerae, EOMI ENT: Present: hearing grossly normal - Respiratory Respiratory: bilateral: CTA - Cardiovascular Rhythm: regular Heart sounds: normal: S1, S2 Abnormal Heart Sounds: Absent: systolic murmur, diastolic murmur, rub, S3 Gallop, S4 Gallop, click, other - Gastrointestinal General gastrointestinal: Present: normal bowel sounds, soft, splenomegaly - Neurologic Neurologic: Present: CNII-XII intact (grossly) - Musculoskeletal Musculoskeletal: Present: strength equal bilaterally - Psychiatric Psychiatric: Present: A&O x's 3, appropriate affect, intact judgment & insight - Labs CBC & Chem 7: 08/27/21 05:39 08/27/21 05:39 Labs: Abnormal Lab Results - Last 24 Hours (Table) 08/24/21 08/24/21 08/24/21 Range/Units 05:47 05:47 06:00 RBC (4.10-5.20) X 10*6/uL Hgb (12.0-15.0) g/dL Hct (37.2-46.3) % RDW (11.5-14.5) % Pathologist Review Anion Gap (10.00-18.00) mmol/L Est GFR (CKD-EPI)AfAm (60.0-200.0) Est GFR (CKD-EPI)NonAf (60.0-200.0) BUN/Creatinine Ratio (12.00-20.00) Ratio Glucose (70-110) mg/dL POC Glucose (mg/dL) (75-99) mg/dL Albumin (PEP) 3.54 L (3.80-4.90) g/dL Vit D 1,25-Dihydroxy 133 H (20 - 79) pg/mL U Free [place] Light Ch 8.48 H (0.00-3.29) mg/dL U Free [place] Light Ch 1.68 H (0.00-0.38) mg/dL Free [place] LC, Quant (0.33-1.94) mg/dL Free Lambda LC, Quant (0.57-2.63) mg/dL 08/24/21 08/24/21 08/26/21 Range/Units 17:26 17:26 11:59 RBC (4.10-5.20) X 10*6/uL Hgb (12.0-15.0) g/dL Hct (37.2-46.3) % RDW (11.5-14.5) % Pathologist Review See comment A Anion Gap (10.00-18.00) mmol/L Est GFR (CKD-EPI)AfAm (60.0-200.0) Est GFR (CKD-EPI)NonAf (60.0-200.0) BUN/Creatinine Ratio (12.00-20.00) Ratio Glucose (70-110) mg/dL POC Glucose (mg/dL) 125 H (75-99) mg/dL Albumin (PEP) (3.80-4.90) g/dL Vit D 1,25-Dihydroxy (20 - 79) pg/mL U Free [place] Light Ch (0.00-3.29) mg/dL U Free [place] Light Ch (0.00-0.38) mg/dL Free [place] LC, Quant 4.33 H (0.33-1.94) mg/dL Free [place]ambda LC, Quant 4.70 H (0.57-2.63) mg/dL 08/26/21 08/26/21 08/27/21 Range/Units 17:00 20:12 05:39 RBC 3.39 L (4.10-5.20) X 10*6/uL Hgb 10.0 L (12.0-15.0) g/dL Hct 31.2 L (37.2-46.3) % RDW 14.6 H (11.5-14.5) % Pathologist Review Anion Gap (10.00-18.00) mmol/L Est GFR (CKD-EPI)AfAm (60.0-200.0) Est GFR (CKD-EPI)NonAf (60.0-200.0) BUN/Creatinine Ratio (12.00-20.00) Ratio Glucose (70-110) mg/dL POC Glucose (mg/dL) 137 H 140 H (75-99) mg/dL Albumin (PEP) (3.80-4.90) g/dL Vit D 1,25-Dihydroxy (20 - 79) pg/mL U Free [place] Light Ch (0.00-3.29) mg/dL U Free [place] Light Ch (0.00-0.38) mg/dL Free [place] LC, Quant (0.33-1.94) mg/dL Free [place]ambda LC, Quant (0.57-2.63) mg/dL 08/27/21 08/27/21 Range/Units 05:39 07:09 RBC (4.10-5.20) X 10*6/uL Hgb (12.0-15.0) g/dL Hct (37.2-46.3) % RDW (11.5-14.5) % Pathologist Review Anion Gap 9.90 L (10.00-18.00) mmol/L Est GFR (CKD-EPI)AfAm 39.1 L (60.0-200.0) Est GFR (CKD-EPI)NonAf 33.7 L (60.0-200.0) BUN/Creatinine Ratio 6.60 L (12.00-20.00) Ratio Glucose 122 H (70-110) mg/dL POC Glucose (mg/dL) 116 H (75-99) mg/dL Albumin (PEP) (3.80-4.90) g/dL Vit D 1,25-Dihydroxy (20 - 79) pg/mL U Free [place] Light Ch (0.00-3.29) mg/dL U Free [place] Light Ch (0.00-0.38) mg/dL Free [place] LC, Quant (0.33-1.94) mg/dL Free [place]ambda LC, Quant (0.57-2.63) mg/dL Assessment and Plan (1) Hyperuricemia Narrative/Plan: status post 1 dose of Elitek. Uric acid lab in the a.m. Current Visit: Yes Status: Acute Priority: High Code(s): E79.0 - HYPERURICEMIA W/O SIGNS OF INFLAM ARTHRIT AND TOPHACEOUS DIS SNOMED Code(s): 34949590 (2) Homocysteine level above reference range Narrative/Plan: Started on oral folic acid. Rx sent to [facility] Current Visit: Yes Status: Acute Priority: High Code(s): R79.89 - OTHER SPECIFIED ABNORMAL FINDINGS OF BLOOD CHEMISTRY SNOMED Code(s): 496180872 (3) Hypercalcemia Narrative/Plan: This is resolved with hydration. Calcium level is 10 today. Going to need to continue to monitor. Current Visit: Yes Status: Acute Priority: High Code(s): E83.52 - HYPERCALCEMIA SNOMED Code(s): 27490159 (4) B12 deficiency Narrative/Plan: Started on IM B12. This will continue outpatient Current Visit: Yes Status: Acute Priority: High Code(s): E53.8 - DEFICIENCY OF OTHER SPECIFIED B GROUP VITAMINS SNOMED Code(s): 926910467 Plan: Speaking with patient today she refused the periaortic lymph node biopsy. Patient states that she would like to go home, discuss everything with her family and meet with Dr. Gramajo in the outpatient setting, in about 1-2 weeks, to further discuss biopsy options. We'll get an appointment to patient's chart for 1-2 weeks.
--- NOTE | 2021-08-27 11:18 | P.PN ---
Subjective Progress Note Date: 08/27/21 CHIEF COMPLAINT: Periaortic adenopathy HISTORY OF PRESENT ILLNESS: Patient is undergoing workup for suspected lymphoma. Patient refused the CT-guided biopsy of the periaortic adenopathy by IR service. She reports that she thinks she may prefer to have a biopsy done on the spleen at [facility]. She did have a fall last night with CAT scan of brain completed. Patient does have bruising around her right eye. Bone scan was negative. She's afebrile. WBC 5.10 hemoglobin 10.0 platelets 204 PHYSICAL EXAM: VITAL SIGNS: Reviewed GENERAL: Well-developed in no acute distress. HEENT: No sclera icterus. Extraocular movements grossly intact. Moist buccal mucosa. She has periorbital bruising around the right eye Head is normocephalic. Hears conversational speech. No nasal drainage. NECK: Supple without lymphadenopathy. CHEST: Non-labored respirations and equal bilateral excursions. CARDIOVASCULAR: Palpable 2+ radial pulses. ABDOMEN: Soft. Nondistended. Nontender. MUSCULOSKELETAL: No clubbing or cyanosis. NEUROLOGIC: No focal or lateralizing signs. Cranial nerves II through XII grossly intact. PSYCH: Appropriate affect. Alert and oriented to person, place and time. SKIN: Well perfused. Good skin turgor. ASSESSMENT: 1. Periaortic lymph node and concerns of possible lymphoma noted on CAT scan 2. Possible spleen lesions 3. Hypercalcemia PLAN: -No surgical intervention planned -Continue oncology workup -Continue supportive care Physician Brine Process Operator note has been reviewed by physician. Signing provider agrees with the documented findings, assessment, and plan of care. Patient seen and evaluated. She reports recent fall resulting in bilateral orbital ecchymosis. Patient reports that she chooses to no longer have CT- guided biopsy of retroperitoneal lymph node. Patient seeking for discharge home. Calcium level now within normal limits. Agree with discharge home when medically stable Objective - Vital Signs Vital signs: Vital Signs Temp 97.6 F 08/27/21 05:00 Pulse 65 08/27/21 08:00 Resp 18 08/27/21 05:00 BP 153/83 08/27/21 08:00 Pulse Ox 95 08/27/21 05:00 Intake & Output 08/26/21 08/27/21 08/27/21 18:59 06:59 18:59 Intake Total 540 2060 Balance 540 2060 Intake: Intake, IV Titration 1560 Amount Sodium Chloride 0.9% 1, 1560 000 ml @ 130 mls/hr IV . Q7H42M [facility] Rx#:[id number] Oral 540 500 Other: Voiding Method Toilet Toilet # Voids 2 4 - Labs CBC & Chem 7: 08/27/21 05:39 08/27/21 05:39 Labs: Abnormal Lab Results - Last 24 Hours (Table) 08/24/21 08/24/21 08/24/21 Range/Units 05:47 05:47 17:26 RBC (4.10-5.20) X 10*6/uL Hgb (12.0-15.0) g/dL Hct (37.2-46.3) % RDW (11.5-14.5) % Pathologist Review See comment A Anion Gap (10.00-18.00) mmol/L Est GFR (CKD-EPI)AfAm (60.0-200.0) Est GFR (CKD-EPI)NonAf (60.0-200.0) BUN/Creatinine Ratio (12.00-20.00) Ratio Glucose (70-110) mg/dL POC Glucose (mg/dL) (75-99) mg/dL Albumin (PEP) 3.54 L (3.80-4.90) g/dL Vit D 1,25-Dihydroxy 133 H (20 - 79) pg/mL 08/26/21 08/26/21 08/26/21 Range/Units 11:59 17:00 20:12 RBC (4.10-5.20) X 10*6/uL Hgb (12.0-15.0) g/dL Hct (37.2-46.3) % RDW (11.5-14.5) % Pathologist Review Anion Gap (10.00-18.00) mmol/L Est GFR (CKD-EPI)AfAm (60.0-200.0) Est GFR (CKD-EPI)NonAf (60.0-200.0) BUN/Creatinine Ratio (12.00-20.00) Ratio Glucose (70-110) mg/dL POC Glucose (mg/dL) 125 H 137 H 140 H (75-99) mg/dL Albumin (PEP) (3.80-4.90) g/dL Vit D 1,25-Dihydroxy (20 - 79) pg/mL 08/27/21 08/27/21 08/27/21 Range/Units 05:39 05:39 07:09 RBC 3.39 L (4.10-5.20) X 10*6/uL Hgb 10.0 L (12.0-15.0) g/dL Hct 31.2 L (37.2-46.3) % RDW 14.6 H (11.5-14.5) % Pathologist Review Anion Gap 9.90 L (10.00-18.00) mmol/L Est GFR (CKD-EPI)AfAm 39.1 L (60.0-200.0) Est GFR (CKD-EPI)NonAf 33.7 L (60.0-200.0) BUN/Creatinine Ratio 6.60 L (12.00-20.00) Ratio Glucose 122 H (70-110) mg/dL POC Glucose (mg/dL) 116 H (75-99) mg/dL Albumin (PEP) (3.80-4.90) g/dL Vit D 1,25-Dihydroxy (20 - 79) pg/mL
[2021-08-27 12:14] VITALS: TEMP 97.7
[2021-08-27 12:29] LABS: Glucose,Whole Blood 103 mg/dL (75-99)
--- NOTE | 2021-08-27 12:55 | P.PN ---
Subjective Progress Note Date: 08/27/21 Pt had a fall last night and had facial trauma with eye bruising and swelling. CT H/N negative for bleed or fracture. Gen: awake, alert HEENT: normocephalic, atraumatic, good hearing acuity, moist mucous membranes Resp: good air exchange, breathing comfortably with no accessory muscle use CVS: good distal perfusion x 4, GI: soft, NTTP, ND : no SPT, no CVAT, riley catheter not present MSK: no pitting edema, no clubbing Neuro: non-focal, moving all extremities Psych: cooperative, euthymic mood Assessment/plan: Non-PTH mediated Hypercalcemia -Obtain workup including myeloma -CT C/A/P with splenomegaly with heterogenousness and para-aortic lymph node concerning for lymphoma -Heme/Onc consult appreciated -Surgery consulted for biopsy, deferred to IR -Pt was taken to CT suite this morning, but refused the biopsy, preferring outpatient splenic lesion biopsy instead -rec'd calcitonin and pamidronate on 08/24 -Ca today: 10.0 -continue IVF -bone scan negative Mechanical Fall -CT H/N neg for fracture or bleed -d/c ativan, dilaudid Hypokalemia, resolved -Replace and monitor Kidney injury, acute versus chronic -Creatinine 1.73, previously 0.7 in 2016, improving from peak Cr of 2.0 -Maybe due to underlying myeloma versus poor oral intake -continue IVF Chronic conditions: Type II DM, hypertension, hyperlipidemia -Continue with home meds -Insulin sliding scale and blood glucose monitoring -Check A1c DVT prophylaxis -Heparin subcu CODE STATUS: Full Code Discussed with: Patient Anticipated discharge place: Home tomorrow Objective - Vital Signs Vital signs: Vital Signs Temp 97.7 F 08/27/21 11:32 Pulse 64 08/27/21 11:32 Resp 18 08/27/21 11:32 BP 145/73 08/27/21 11:32 Pulse Ox 97 08/27/21 11:32 Intake & Output 08/26/21 08/27/21 08/27/21 18:59 06:59 18:59 Intake Total 540 2060 Balance 540 2060 Intake: Intake, IV Titration 1560 Amount Sodium Chloride 0.9% 1, 1560 000 ml @ 130 mls/hr IV . Q7H42M [facility] Rx#:[id number] Oral 540 500 Other: Voiding Method Toilet Toilet Toilet # Voids 2 4 - Labs CBC & Chem 7: 08/27/21 05:39 08/27/21 05:39 Labs: Abnormal Lab Results - Last 24 Hours (Table) 08/24/21 08/24/21 08/26/21 Range/Units 05:47 17:26 17:00 RBC (4.10-5.20) X 10*6/uL Hgb (12.0-15.0) g/dL Hct (37.2-46.3) % RDW (11.5-14.5) % Pathologist Review See comment A Anion Gap (10.00-18.00) mmol/L Est GFR (CKD-EPI)AfAm (60.0-200.0) Est GFR (CKD-EPI)NonAf (60.0-200.0) BUN/Creatinine Ratio (12.00-20.00) Ratio Glucose (70-110) mg/dL POC Glucose (mg/dL) 137 H (75-99) mg/dL Vit D 1,25-Dihydroxy 133 H (20 - 79) pg/mL 08/26/21 08/27/21 08/27/21 Range/Units 20:12 05:39 05:39 RBC 3.39 L (4.10-5.20) X 10*6/uL Hgb 10.0 L (12.0-15.0) g/dL Hct 31.2 L (37.2-46.3) % RDW 14.6 H (11.5-14.5) % Pathologist Review Anion Gap 9.90 L (10.00-18.00) mmol/L Est GFR (CKD-EPI)AfAm 39.1 L (60.0-200.0) Est GFR (CKD-EPI)NonAf 33.7 L (60.0-200.0) BUN/Creatinine Ratio 6.60 L (12.00-20.00) Ratio Glucose 122 H (70-110) mg/dL POC Glucose (mg/dL) 140 H (75-99) mg/dL Vit D 1,25-Dihydroxy (20 - 79) pg/mL 08/27/21 08/27/21 Range/Units 07:09 12:21 RBC (4.10-5.20) X 10*6/uL Hgb (12.0-15.0) g/dL Hct (37.2-46.3) % RDW (11.5-14.5) % Pathologist Review Anion Gap (10.00-18.00) mmol/L Est GFR (CKD-EPI)AfAm (60.0-200.0) Est GFR (CKD-EPI)NonAf (60.0-200.0) BUN/Creatinine Ratio (12.00-20.00) Ratio Glucose (70-110) mg/dL POC Glucose (mg/dL) 116 H 103 H (75-99) mg/dL Vit D 1,25-Dihydroxy (20 - 79) pg/mL
[2021-08-27] MEDS: SODIUM CHLORIDE 0.9% 1,000 ML IV SCH ×2 (13:55→14:00)
[2021-08-27] MEDS ORDERED: MAGNESIUM HYDROXIDE 2,400 MG/10 ML CUP PO PRN (16:28)
[2021-08-27 17:16] LABS: Glucose,Whole Blood 116 mg/dL (75-99)
[2021-08-27 21:19] LABS: Glucose,Whole Blood 145 mg/dL (75-99)
[2021-08-27] MEDS: INSULIN DETEMIR (LEVEMIR) 100 UNIT/ML SYR SQ SCH (21:54)
[2021-08-27] MEDS: ATORVASTATIN 40 MG TAB PO SCH (21:54)
[2021-08-28] MEDS: SODIUM CHLORIDE 0.9% 1,000 ML IV SCH ×2 (00:27→07:35)
[2021-08-28] MEDS: HEPARIN SODIUM,PORCINE/PF 5,000 UNIT/0.5 ML SYRINGE SQ SCH ×3 (01:37→07:38)
[2021-08-28 05:17] VITALS: BP 138/70; PULSE 82; RESP 20
[2021-08-28 07:17] LABS: Glucose,Whole Blood 97 mg/dL (75-99)
[2021-08-28] MEDS: INSULIN ASPART (NovoLOG) 100 UNIT/ML VIAL SQ SCH (07:25)
[2021-08-28] MEDS: HYDROcodone/APAP 7.5-325MG 1 EACH TAB PO PRN (07:33)
[2021-08-28] MEDS: GABAPENTIN 300 MG CAP PO SCH (07:33)
[2021-08-28] MEDS: hydrALAZINE HCL 25 MG TAB PO SCH (07:34)
[2021-08-28] MEDS: amLODIPine 10 MG TAB PO SCH (07:34)
[2021-08-28] MEDS: FOLIC ACID 1 MG TAB PO SCH (07:34)
[2021-08-28] MEDS: POTASSIUM BICARBONATE/CIT AC 20 MEQ TABLET.EFF PO SCH (07:34)
--- NOTE | 2021-08-28 10:59 | P.PN ---
Subjective Progress Note Date: 08/28/21 CHIEF COMPLAINT: Periaortic adenopathy HISTORY OF PRESENT ILLNESS: Patient is undergoing workup for suspected lymphoma. Patient refused the CT-guided biopsy of the periaortic adenopathy by IR service. Patient would like to be discharged home. She was to follow-up with Dr. Gramajo outpatient and discuss her options before making a final decision regarding biopsy. She reports that she thinks she may prefer to have a biopsy done on the spleen at [facility]. Afebrile. Calcium level normalized. She is tolerating diet. PHYSICAL EXAM: VITAL SIGNS: Reviewed GENERAL: Well-developed in no acute distress. HEENT: No sclera icterus. Extraocular movements grossly intact. Moist buccal mucosa. She has periorbital ecchymosis around bilateral eyes Head is normocephalic. Hears conversational speech. No nasal drainage. NECK: Supple without lymphadenopathy. CHEST: Non-labored respirations and equal bilateral excursions. CARDIOVASCULAR: Palpable 2+ radial pulses. ABDOMEN: Soft. Nondistended. Nontender. MUSCULOSKELETAL: No clubbing or cyanosis. NEUROLOGIC: No focal or lateralizing signs. Cranial nerves II through XII grossly intact. PSYCH: Appropriate affect. Alert and oriented to person, place and time. SKIN: Well perfused. Good skin turgor. ASSESSMENT: 1. Periaortic lymph node and concerns of possible lymphoma noted on CAT scan 2. Possible spleen lesions 3. Hypercalcemia PLAN: -No surgical intervention planned -Patient can be discharged surgical standpoint when medically clear -Recommend outpatient follow-up with oncology Physician Battery Container Inspector note has been reviewed by physician. Signing provider agrees with the documented findings, assessment, and plan of care. Objective - Vital Signs Vital signs: Vital Signs Temp 97.7 F 08/28/21 04:20 Pulse 82 08/28/21 04:20 Resp 20 08/28/21 04:20 BP 138/70 08/28/21 04:20 Pulse Ox 96 08/28/21 04:20 Intake & Output 08/27/21 08/28/21 08/28/21 18:59 06:59 18:59 Intake Total 1760 Balance 1760 Intake: Intake, IV Titration 1560 Amount Sodium Chloride 0.9% 1, 1560 000 ml @ 130 mls/hr IV . [id number] [facility] Rx#:[id number] Oral 200 Other: Voiding Method Toilet Toilet Toilet # Voids 1 2 - Labs CBC & Chem 7: 08/27/21 05:39 08/27/21 05:39 Labs: Abnormal Lab Results - Last 24 Hours (Table) 08/27/21 08/27/21 08/27/21 Range/Units 12:21 17:11 21:14 POC Glucose (mg/dL) 103 H 116 H 145 H (75-99) mg/dL Uric Acid (3.7-7.4) mg/dL 08/28/21 Range/Units 05:58 POC Glucose (mg/dL) (75-99) mg/dL Uric Acid <0.5 L (3.7-7.4) mg/dL
--- NOTE | 2021-08-28 13:30 | CDI ---
Documentation Clarification Form Date: 08/28/2021 12:56:48 PM From: Dawn Bond RN, CCDS Admit Date: 08/24/2021 09:15:00 AM Patient Name: Yanci Ham Visit Number: [id number] Discharge Date: 08/28/2021 11:20:00 AM ATTENTION: The Clinical Documentation Specialists (CDI) and [facility] Coding Staff appreciate your assistance in clarifying documentation. Please respond to the clarification below the line at the bottom and electronically sign. The CDI & [facility] Coding staff will review the response and follow-up if needed. Please note: Queries are made part of the Legal Health Record. If you have any questions, please contact the author of this message via ITS. Dr. Amor Lanier Conflicting documentation has been found in the medical record , in the H/P and subsequent documentation. Kidney injury , acute versus chronic.. As attending physician, please provide clarification. 08/24-08/27 Kidney injury acute versus chronic History/Risk Factors: Diabetes Mellitus, Hypertension Clinical Indicators: 76-year-old female present with weakness, transfer for low potassium and elevated calcium. 08/24 H/P: Kidney injury acute versus chronic, previously 0.7 in 2016;. 08/23/21 BUN 21, Creatinine 1.97 GFR 24, 08/24/21 BUN 17.4, Creatinine 2.0 GFR 23.8 08/25/21 BUN 13, Creatinine 1.82 GFR 27 Treatment: Monitor renal function daily per orders .9NS 1,000 Ml Bolus X1, 500ML Bolus x1 then @ 130 MLS HR 08/24-08/28 Please clarify which diagnosis is most appropriate: [x] Acute Kidney Injury [ ] Acute on Chronic Kidney injury (Specify stage of CKD if known) [ ] Chronic Kidney Injury (Specify Stage If known) [ ] Other (please specify) [ ] Unable to determine (Template Last Revised: July 2020) MTDD
--- NOTE | 2021-08-28 14:22 | P.DS ---
Providers Date of admission: 08/24/21 09:15 Expected date of discharge: 08/28/21 Attending physician: Brainne Faria MD Consults: 08/24/21 14:06 Consult Physician Routine Consulting Provider: Handy Schmid Consult Reason/Comments: Lymphoma suspected Do you want consulting provider notified?: Yes 08/24/21 14:07 Consult Physician Routine Consulting Provider: Morena Mcbride Consult Reason/Comments: excisional para-aortic lymph node biopsy Do you want consulting provider notified?: Yes Primary care physician: [facility] Course: Non-PTH mediated Hypercalcemia Mechanical Fall Hypokalemia, resolved Kidney injury, acute Chronic conditions: Type II DM, hypertension, hyperlipidemia Patient is a 76-year-old female with a PMH of type II DM, hypertension, hyperlipidemia who presents to the emergency room with complaints of generalized weakness. Patient presented to the [facility] emergency room where laboratory evaluation revealed a potassium of 3.0 and calcium of 13.5. The patient's UA was also consistent with UTI for which the patient was given ceftriaxone 1 g and was subsequently sent to [facility] emergency room. In our laboratory evaluation, the patient's potassium was 3.5 with calcium 12.4, BUN 21, creatinine 1.97, and an unremarkable UA. EKG reveals sinus bradycardia at 55 bpm with sinus arrhythmia and left axis deviation as well as left bundle branch block. Chest x-ray was unremarkable. Hypercalcemia workup was significant for low normal PTH, low vitamin D storage level, elevated activated vitamin D level consistent with non-PTH mediated hypercalcemia. Therefore, workup for myeloma/lymphoma was done including SPEP, UPEP, free light chains, bone scan, CT of the chest/abdomen/pelvis to look for lymphadenopathy. There is no definitive monoclonal antibody spike on SPEP or UPEP. Free light chains were ratio of 8-1 in the urine, normal ratio in the blood, both blood and urine were elevated. Bone scan was negative. CT of the chest/MS/pelvis demonstrated para- aortic lymphadenopathy as well as splenomegaly with heterogenous spleen likely with multiple lesions. In regards to hypercalcemia treatment, patient was placed on IV fluids at 130 mL per hour, given 1 dose of 400 mg IM calcitonin, pamidronate on 08/24. With these interventions, calcium gradually improved to less than 10.3. Hematology/oncology were consulted due to concern for lymphoma, as well as general surgery for biopsy of the lymph node. Gen. surgery deferred to interventional radiology for lymph node biopsy, however, patient declined to do this lymph node biopsy due to fear that it was high risk. Hematology/oncology offer the patient could ultimately undergo splenic biopsy which had easier access, and this could be done as an outpatient. Also check uric acid level which was elevated concerning for tumor lysis syndrome. She received 1 dose of rasburicase, which resolved her uric acid less than 0.5. Patient felt back to her baseline by the time of discharge, was looking forward to going home, signaled that she would indeed follow-up with hematology/oncology for further workup and management. I spent 45 minutes coordinating this complex discharge Gen: awake, alert HEENT: normocephalic, atraumatic, good hearing acuity, moist mucous membranes Resp: good air exchange, breathing comfortably with no accessory muscle use CVS: good distal perfusion x 4, GI: soft, NTTP, ND : no SPT, no CVAT, riley catheter not present MSK: no pitting edema, no clubbing Neuro: non-focal, moving all extremities Psych: cooperative, euthymic mood Patient Condition at Discharge: Good Plan - Discharge Summary Discharge Rx Participant: Yes New Discharge Prescriptions: New RX: hydrALAZINE HCL [Apresoline] 25 mg PO BID #60 tab RX: Folic Acid 1 mg PO DAILY #90 tablet RX: amLODIPine [Norvasc] 10 mg PO DAILY #30 tab Continue RX: metFORMIN HCL [Glucophage] 500 mg PO BID RX: Gabapentin [Neurontin] 300 mg PO BID RX: Atorvastatin [Lipitor] 40 mg PO HS RX: Ergocalciferol (Vitamin D2) [Drisdol (50,000 Iu)] 1,250 mcg PO DIAZ RX: Ibuprofen [Motrin Ib] 400 mg PO Q8H PRN PRN Reason: Pain Or Fever > 100.5 RX: Pioglitazone [Actos] 45 mg PO DAILY RX: HYDROcodone/APAP 7.5-325MG [[place] 7.5-325] 1 tab PO TID Changed RX: Insulin Detemir [Levemir Flextouch Pen] 10 units SQ HS #0 Discontinued RX: Losartan Potassium 50 mg PO DAILY RX: hydroCHLOROthiazide [Hydrodiuril] 25 mg PO DAILY Discharge Medication List RX: metFORMIN HCL [Glucophage] 500 mg PO BID 08/13/14 [History] RX: Atorvastatin [Lipitor] 40 mg PO HS 08/23/21 [History] RX: Ergocalciferol (Vitamin D2) [Drisdol (50,000 Iu)] 1,250 mcg PO DIAZ 08/23/21 [History] RX: Gabapentin [Neurontin] 300 mg PO BID 08/23/21 [History] RX: HYDROcodone/APAP 7.5-325MG [[place] 7.5-325] 1 tab PO TID 08/23/21 [History] RX: Ibuprofen [Motrin Ib] 400 mg PO Q8H PRN 08/23/21 [History] RX: Pioglitazone [Actos] 45 mg PO DAILY 08/23/21 [History] RX: Folic Acid 1 mg PO DAILY #90 tablet 08/27/21 [Rx] RX: Insulin Detemir [Levemir Flextouch Pen] 10 units SQ HS #0 08/28/21 [Rx] RX: amLODIPine [Norvasc] 10 mg PO DAILY #30 tab 08/28/21 [Rx] RX: hydrALAZINE HCL [Apresoline] 25 mg PO BID #60 tab 08/28/21 [Rx] Follow up Appointment(s)/Referral(s): Carlos Lao DO [Primary Care Provider] - 08/30/21 3:20 pm Felicitas Gramajo MD [STAFF PHYSICIAN] - 2 Weeks (office is setting up appt and will notify patient) Patient Instructions/Handouts: Hodgkin Lymphoma (DC), Non-Hodgkin Lymphoma (DC) Discharge Disposition: HOME WITH HOME HEALTH SERVICES
== END 2021-08-28 11:20 | disposition home health service (06) | DRG 641 ==
LOC: EC 21:45 → 6NMEDSUR 08-24 00:31 → OBSVTOIN 08-24 09:15 → 5NMEDONC 08-24 16:01
PROVIDERS: ADMIT Internal Medicine; ATTEND Internal Medicine
DX: E83.52 Hypercalcemia (principal); C85.90 Non-Hodgkin lymphoma, unspecified, unspecified site; N39.0 Urinary tract infection, site not specified; N17.9 Acute kidney failure, unspecified; E11.9 Type 2 diabetes mellitus without complications; E53.8 Deficiency of other specified B group vitamins; E78.5 Hyperlipidemia, unspecified; E86.0 Dehydration; E87.6 Hypokalemia; I10 Essential (primary) hypertension; I44.7 Left bundle-branch block, unspecified; S00.11XA Contusion of right eyelid and periocular area, initial encounter; W18.30XA Fall on same level, unspecified, initial encounter; Z53.20 Procedure and treatment not carried out because of patient's decision for unspecified reasons; Z79.4 Long term (current) use of insulin; Z79.899 Other long term (current) drug therapy; Z82.3 Family history of stroke; Z90.710 Acquired absence of both cervix and uterus; Z96.651 Presence of right artificial knee joint
CPT/HCPCS: 36415; 70450; 71046; 71260; 72125; 74177; 76770; 78306; 80048; 80053; 81001; 82306; 82310; 82330; 82607; 82652; 82728; 82746; 82784; 83090; 83516; 83519; 83540; 83550; 83605; 83615; 83735; 83883; 83921; 83970; 84100; 84156; 84165; 84443; 84484; 84550; 85025; 85027; 85610; 85652; 85730; 86038; 86140; 86334; 86335; 86431; 93005; 99285

== ENCOUNTER → 2022-05-08 | Outpatient (CLI) | payer MEDICARE, BC ==
--- NOTE | 2022-05-09 08:28 | MM ---
Reason for Exam: Screening (asymptomatic). Last mammogram was performed 1 year(s) and 2 month(s) ago. Patient History: Menarche at age 16. First Full-Term at age 21. Left ovary removed at age 53. Right ovary removed at age 53. Hysterectomy at age 53. Postmenopausal. Estrogen, starting at age 53 for 10 years. Risk Values: Jennifer 5 year model risk: 1.4%. NCI Lifetime model risk: 3.1%. Prior Study Comparison: 11/16/2018 Bilateral Screening Mammogram, [facility]. 02/13/2020 Bilateral Screening Mammogram, [facility]. 03/21/2021 Bilateral Screening Mammogram, [facility]. Tissue Density: There are scattered fibroglandular densities. Findings: Analyzed By CAD. There is no suspicious group of microcalcifications or new suspicious mass in either breast. Chronic nodularity in the right breast. No significant change from prior exams. Overall Assessment: Benign, BI-RAD 2 Management: Screening Mammogram of both breasts in 1 year. A clinical breast exam by your physician is recommended on an annual basis and results should be correlated with mammographic findings. Electronically signed and approved by: John Wolfe D.O.
== END | disposition home or self-care (01) ==
LOC: RADMAMWWP 13:20
PROVIDERS: ATTEND Family Medicine
DX: Z12.31 Encounter for screening mammogram for malignant neoplasm of breast (principal); Z78.0 Asymptomatic menopausal state
CPT/HCPCS: 77063; 77067

== ENCOUNTER → 2023-02-17 | Outpatient (CLI) | payer MEDICARE, BC ==
[2023-02-17 09:00] LABS: Prothrombin Time 10.3 sec (9.0-12.0)
[2023-02-17 11:04] LABS: HGB 11.2 d/dL (12.0-15.0); MCH 29.2 pg (27.0-32.0); MCV 91.4 FL (80.0-97.0); Mean Platelet Volume 9.7 FL (9.5-12.2); NRBC Per 100 WBC 0 X 10*3/uL (0.00-0.01); Platelet Count 233 X 10*3/uL (140-440); RBC 3.83 X 10*6/uL (4.10-5.20); RDW 14.7 % (11.5-14.5); WBC 4.29 X 10*3/uL (4.50-10.00)
[2023-02-17 11:19] LABS: ALT 21 U/L (8-44); AST 23 U/L (13-35); Albumin/Globulin Ratio 1.74 Ratio (1.60-3.17); Alkaline Phosphatase 91 U/L (41-126); BUN/Creat Ratio 12.31 Ratio (12.00-20.00); Calcium 9.5 mg/dL (8.7-10.3); Carbon Dioxide 29.2 mmol/L (21.6-31.8); Chloride 96 mmol/L (96-109); Globulin 2.3 d/dL (1.6-3.3); Glucose 144 mg/dL (70-110); Potassium 3.8 mmol/L (3.5-5.5); Sodium 135 mmol/L (135-145); Total Bilirubin 0.4 mg/dL (0.3-1.2); Total Protein 6.3 d/dL (6.2-8.2)
[2023-02-17 11:53] LABS: Amorphous Sediment,Urine Rare /hpf; Appearance,Urine Clear (Clear); Bacteria,Urine Rare /hpf; Bilirubin,Urine Negative (Negative); Blood,Urine Negative (Negative); Color,Urine Colorless; Glucose,Urine (UA) Negative (Negative); Ketones,Urine Negative (Negative); Leukocyte Esterase,Urine Large (Negative); Mucus,Urine Rare /hpf; Nitrite,Urine Negative (Negative); Protein,Urine Negative (Negative); RBC,Urine 3 /hpf (0-5); Specific Gravity,Urine 1.005 (1.001-1.035); Squamous Epithelial Cell,Urine 1 /hpf (0-4); Urobilinogen,Urine <2.0 mg/dL (<2.0); WBC,Urine 2 /hpf (0-5)
== END | disposition home or self-care (01) ==
LOC: LABPAT 08:16
PROVIDERS: ATTEND Orthopaedic Surgery
DX: Z01.812 Encounter for preprocedural laboratory examination (principal); M19.011 Primary osteoarthritis, right shoulder
CPT/HCPCS: 36415; 80053; 81001; 85027; 85610; 85730; 87070

== ENCOUNTER 2023-03-09 05:43 | Day surgery (SDC) | payer MEDICARE, BC, OTHER ==
[~2023-03-09 05:43] MED LIST: ACETAMINOPHEN TAB 500 MG TAB PO PRN; DEXAMETHASONE SOD PHOSPHATE 4 MG/ML 1 ML VIAL IV ONE; GABAPENTIN 300 MG CAP PO PRN; HYDROmorphone 0.5 MG/0.5 ML SYRINGE IVP PRN; LIDOCAINE 1% (10MG/ML) FOR IV START INTRADERMA PRN; METOCLOPRAMIDE 5 MG/ML 2 ML VIAL IVP PRN; MIDAZOLAM 2 MG/2 ML VIAL IV PRN; ONDANSETRON 4 MG/2 ML VIAL IVP ONE; TRANEXAMIC 1,000 MG/100ML-NACL 1,000 MG in SALINE 1 100ML.BAG IVPB PRN; ceFAZolin 3 GM in SODIUM CHLORIDE 0.9% 100 ML IVPB PRN; fentaNYL (PF) 50 MCG/ML 2 ML AMP IVP PRN
[2023-03-09] MEDS ORDERED: ONDANSETRON 4 MG/2 ML VIAL ONE (05:45)
[2023-03-09] MEDS: LACTATED RINGERS 1,000 ML IV SCH (06:10)
[2023-03-09 06:40] LABS: Glucose,Whole Blood 125 mg/dL (70-110)
[2023-03-09] MEDS ORDERED: ceFAZolin 1,000 MG in SODIUM CHLORIDE 0.9% 1,000 ML IRRIGATION ONE (07:30)
--- NOTE | 2023-03-09 08:14 | P.OP ---
Date of Procedure: 03/09/23 Preoperative Diagnosis: Severe osteoarthritis of the right shoulder with chronic rotator cuff tear Postoperative Diagnosis: Severe osteoarthritis of the right shoulder with chronic rotator cuff tear Procedure(s) Performed: Reverse right total shoulder arthroplasty Implants: Biomet comprehensive shoulder system, mini humeral stem, 12 mm porous-coated. Biomet comprehensive reverse shoulder system, humeral bearing, 36 mm, standard Biomet comprehensive reverse shoulder system, mini humeral tray, 40 mm, +0, standard Biomet comprehensive reverse shoulder, Glenosphere mini baseplate, 25 mm Biomet comprehensive reverse shoulder, central screw, 6.5 mm x 30 mm Biomet comprehensive reverse shoulder, fixed locking screw, 4.75 x 20 mm, 15 mm, 15 mm, 20 mm. Biomet comprehensive reverse shoulder glenosphere, 36 mm, standard All components were press-fit. The Articulation is metal on polyethylene. Anesthesia: GETA Surgeon: Carlos Claire Balance Assembler #1: Marika Moreno Estimated Blood Loss (ml): 150 Pathology: none sent Condition: stable Disposition: PACU Indications for Procedure: This is a patient that presented to my office with severe pain in the shoulder. X-rays demonstrated severe osteoarthritis of the glenohumeral joint of her shoulder. After failure of conservative treatment, we discussed the surgical and nonsurgical treatment options at length. The patient wishes to proceed with a reverse total shoulder arthroplasty. Patient is aware of the complications of the procedure which include but are not limited to infection, hardware failure, persistent pain, dislocation, and nerve injury. Informed consent was obtained. Operative Findings: The operative findings are consistent with severe osteoarthritis of the right shoulder with chronic rotator cuff tear Description of Procedure: The patient was seen in the preoperative area, consent was reviewed, and operative site was marked with a skin marker. Patient was then brought to the operating room and given preoperative antibiotics intravenously. Patient was also given 1 g of Tranexamic acid intravenously. A general anesthetic was administered by the anesthesia department. A Diane catheter was placed by the nursing staff. The patient was then placed in a beachchair position with the bony prominences well-padded and the head secured. The shoulder was then prepped and draped in the usual sterile fashion. A universal timeout was then performed, which confirmed the patient's name, surgical site, ALLERGIES, and consent. A standard deltopectoral approach was performed. The skin and subcutaneous tissue was sharply dissected down to the deltoid fascia. The cephalic vein was then identified and retracted medially. The deltopectoral interval was then utilized to expose the subscapularis tendon. A retractor was then placed under the coracobrachialis tendon retracted medially, and the deltoid. The axillary nerve is palpated and protected throughout the procedure. The subscapularis tendon was then released and retracted medially. The humeral head was then exposed easily. The rotator cuff tendon was found to be completely torn and retracted. After the humeral head was exposed, osteophytes were removed with a Ronguer. Next the humeral stem was prepared. A starter reamer was then placed through the humeral head along the axis of the humeral shaft just lateral to the articular surface and just medial to the rotator cuff attachment. Sequential reaming was performed to the appropriate size reamer was inserted to the #between the 3 and 4 on the reamer. Next the intramedullary resection guide was placed on the reamer shaft. It was placed to the appropriate resection depth and angle of 30 of retroversion. Resection guide block was then secured with Steinmann pins. The proximal humerus was then resected. The block was then removed and the humerus was then broached sequentially to the same size as the reamer. After the broaches fully seated, the broach handle was removed and a broach cover was placed protect the humerus while the glenoid was prepared. Next attention was directed to the glenoid. The appropriate retractors were placed around the glenoid and any remaining soft tissues was removed from around the glenoid. After the glenoid was adequately exposed, the threaded glenoid guide was placed onto the glenoid and a 3.2 mm Steinmann pin was inserted in the glenoid at the desired angle and position, ensuring the pin engaged medial cortical wall. Next, the cannulated baseplate reamer was placed over the top of the Steinmann pin. The glenoid was then reamed to the appropriate depth. The glenoid reamer was then removed, leaving the Steinmann pin. The glenoid Bubba plate implant was placed on the end of the cannulated baseplate impactor. The baseplate was then impacted fully into the glenoid. Next the 6.5 mm central screw was then placed which afforded excellent fixation. The 4 peripheral locking screws were then drilled measured and placed. Next the appropriate glenosphere was opened and impacted into the glenoid baseplate. Attention was then redirected to the humerus. Next a trial humeral tray was placed in the shoulder was reduced. Shoulder was taken through a full range of motion and found to be stable. The shoulder was then gently dislocated, and the trial humerus and humeral tray were removed. The final humeral stem was impacted in the final humeral tray was impacted as well. Shoulder was then relocated. Again the shoulder was taken through a range of motion and found to have no instability. Shoulder was then irrigated with pulsatile lavage. The shoulder was then irrigated with Irrisept solution. A second dose of 1 g of Tranexamic acid was given. The subscapularis was then repaired with #1 Vicryl. The deltopectoral interval was then closed with #1 Vicryl as well. The subcutaneous tissues were closed with 3-0 Vicryl then with 3-0 strata fix suture. Exofin skin glue was then placed. A sterile dressing was then applied, the patient was transported to the recovery room in an arm sling in stable condition. The clinical services assistant BING Johnson was required due the complexity of surgery and the need for a skilled manager surgical.
[2023-03-09] MEDS ORDERED: LACTATED RINGERS 1,000 ML IV ONE (08:23)
[2023-03-09] MEDS ORDERED: SENNOSIDES-DOCUSATE SODIUM 1 EACH TAB PO PRN (08:35)
[2023-03-09] MEDS ORDERED: HYDROmorphone 0.5 MG/0.5 ML SYRINGE IVP PRN ×2 (08:35)
[2023-03-09] MEDS ORDERED: ONDANSETRON 4 MG/2 ML VIAL IVP PRN (08:35)
[2023-03-09] MEDS ORDERED: HYDROcodone/APAP 7.5-325MG 1 EACH TAB PO PRN (08:38)
[2023-03-09] MEDS ORDERED: HYDROmorphone 0.5 MG/0.5 ML SYRINGE IVP ONE (09:09)
[2023-03-09 09:13] LABS: Glucose,Whole Blood 164 mg/dL (70-110)
--- NOTE | 2023-03-09 09:34 | XR ---
EXAMINATION TYPE: XR shoulder limited RT DATE OF EXAM: 03/09/2023 9:12 AM INDICATION: Patient age:Female; 77 years old; Reason for study: postop; COMPARISON: Chest radiograph 08/23/2021 TECHNIQUE: The right shoulder was examined in the frontal projection.. FINDINGS: Post surgical changes from right shoulder arthroplasty with proximal humerus and acetabular component s. Hardware appears intact with appropriate alignment on this single view. There is associated soft t issue gas and edema. No acute fracture or dislocation. Cardiomegaly demonstrated. Atherosclerotic oss ification of the aorta. Pulmonary vasculature congestion. Blunting of the right costophrenic angle. IMPRESSION: 1. Postsurgical changes from right shoulder arthroplasty. Hardware appears intact with appropriate a lignment. 2. Cardiomegaly with pulmonary vascular congestion and small right pleural effusion. Findings sugges t CHF exacerbation.
--- NOTE | 2023-03-09 11:42 | P.ANPRN ---
Procedure Note - Anesthesia - Nerve Block Performed Right Interscalene Single Time Out Performed: Yes Date of Procedure: 03/09/23 Procedure Start Time: 06:43 Procedure Stop Time: 06:48 Location of Patient: PreOp Indication: Acute Post-Operative Pain, Requested by Surgeon Sedation Type: Sedate with meaningful contact maintained Preparation: Sterile Prep Position: Supine Needle Types: Pajunk Needle Gauge: 21 Ultrasound used to visualize needle placement: Yes Ultrasound used to observe medication spread: Yes Blood Aspirated: No Pain Paresthesia on Injection Noted: No Resistance on Injection: Normal Image Stored and Saved: Yes Events: Uneventful and Well Tolerated (Ropivacaine 0.5% 20 mL plus dexamethasone 4 mg)
[2023-03-09] MEDS: HYDROcodone/APAP 7.5-325MG 1 EACH TAB PO PRN ×3 (12:12→22:42)
[2023-03-09] MEDS: HYDROmorphone 0.5 MG/0.5 ML SYRINGE IVP PRN ×3 (12:12→20:10)
[2023-03-09] MEDS ORDERED: DEXTROSE 50% SYRINGE 50 ML IVP PRN ×2 (14:05)
[2023-03-09] MEDS: ceFAZolin 3 GM in SODIUM CHLORIDE 0.9% 100 ML IVPB SCH ×2 (16:05→21:08)
[2023-03-09] MEDS: hydrALAZINE HCL 25 MG TAB PO SCH ×2 (16:05→21:07)
[2023-03-09 17:24] LABS: Glucose,Whole Blood 289 mg/dL (70-110)
[2023-03-09] MEDS: INSULIN ASPART (NovoLOG) 100 UNIT/ML VIAL SQ SCH ×2 (17:42→21:08)
--- NOTE | 2023-03-09 19:19 | P.CONS ---
History of Present Illness - Reason for Consult Consult date: 03/09/23 Medical management Requesting physician: Carlos Claire - History of Present Illness History of Presenting Illness: Patient is a very pleasant 77-year-old female with a past medical history of hypertension, hyperlipidemia, insulin-dependent diabetes mellitus type 2, hypothyroidism, and osteoarthritis. She is currently admitted under orthopedic surgery team status post reverse right total shoulder arthroplasty completed by Dr. Claire. We have been consulted for medical management throughout patient's hospitalization. Patient seen and fully evaluated at bedside. She currently reports controlled postoperative pain. Right arm remains in sling. Patient reports movement and sensation of right hand and fingers has returned but right arm still remains slightly numb since surgical procedure. Sensation is intact. She denies having any postoperative nausea or vomiting and is tolerating oral intake without any difficulties. Patient denies having any headache, lightheadedness, dizziness, chest pain, palpitations, or any other complaints at this time. Review of systems: Pertinent positives and negatives as discussed in HPI, a complete review of systems was performed and all other systems are negative. Physical exam: Vital signs reviewed and stable. General: Nontoxic, no distress and appears stated age. Derm: Skin warm and dry, normal coloration for ethnicity. Head: Atraumatic, normocephalic and symmetric. Eyes: EOMs intact, no lid lag, and anicteric sclera Mouth: no lip lesions, mucus membranes moist Cardiovascular: regular rate and rhythm with normal S1S2, no murmur, positive posterior tibial pulses bilaterally, and cap refill < 2 seconds. Lungs: Respirations even, regular, and unlabored on room air. Lungs CTA bilaterally, no rhonchi, no rales, no wheezing, and no accessory muscle usage. Abdominal: soft, nontender to palpation, no guarding, no appreciable organomegaly Ext: No gross muscle atrophy, no edema, no contractures right upper extremity in postoperative dressing and sling, movement and sensation of right hand and fingers is intact. Neuro: Speech clear, face symmetrical and CN II-XII grossly intact with no noted focal neuro deficits Psych: Alert and oriented to person, place, time, and situation. Appropriate and pleasant affect. Assessment and Plan of Care: Severe osteoarthritis Status post reverse right total shoulder arthroplasty -Management per primary admitting orthopedic surgery team including DVT prophyl axis, pain management, wound/dressing care, and PT/OT. -Currently DVT prophylaxis with KOFFI hose and OMERs. Insulin-dependent diabetes mellitus with hyperglycemia -Continue Levemir 23 units nightly and patient placed on glycemic protocol with NovoLog sliding scale. Hypertension Hyperlipidemia Hypothyroidism Depression -Patient to continue with daily medication regimen consisting of levothyroxine 75 g daily, hydralazine 25 mg 3 times daily, gabapentin 300 mg twice daily, furosemide 40 mg daily, Cymbalta 30 mg twice daily, atorvastatin 40 mg nightly, and amlodipine 10 mg nightly. Orders morning CBC, BMP, and magnesium. We will follow up with these results and compare with preoperative lab work and place additional orders as indicated based upon these findings. Thank you for allowing us to participate in the care of this pleasant patient. Do not hesitate to contact us with questions. Someone can be reached from the [facility] hospitalist group all hours of the day at [phone] or via [employer]. Patient was seen independently by Nurse Practitioner. This document was prepared using [employer] dictation software. Please allow for errors in resizer operator while rare they do occur. Dallas Galarza NP rendered care for this patient independently, reviewed the findings and plan as documented in the note above. I did not physically speak with or examine the patient on this date. Past Medical History Past Medical History: Diabetes Mellitus, Hyperlipidemia, Hypertension, Osteoarthritis (OA) Additional Past Medical History / Comment(s): some dysphagia recently w/taking her pills, radha foot edema History of Any Multi-Drug Resistant Organisms: None Reported Past Surgical History: Back Surgery, Hysterectomy, Joint Replacement, Orthopedic Surgery, Tonsillectomy Additional Past Surgical History / Comment(s): 1--16 TOTAL RT KNEE ARTHROPLASTY. RIGHT SHOULDER ROTATOR CUFF,RADHA CATARACT SURGERY,RIGHT KNEE ARTHROSCOPIC Past Anesthesia/Blood Transfusion Reactions: No Reported Reaction Additional Past Anesthesia/Blood Transfusion Reaction / Comm: "Hard to wake up" Past Psychological History: No Psychological Hx Reported Smoking Status: Never smoker Past Alcohol Use History: None Reported Past Drug Use History: None Reported - Past Family History Father Family Medical History: Cancer Additional Family Medical History / Comment(s): PROSTATE Mother Family Medical History: CVA/TIA Medications and Allergies Home Medications Medication Instructions Recorded Confirmed Type Atorvastatin [Lipitor] 40 mg PO HS 08/23/21 03/03/23 History Gabapentin [Neurontin] 300 mg PO BID 08/23/21 03/03/23 History HYDROcodone/APAP 7.5-325MG [[place] 1 tab PO TID 08/23/21 03/03/23 History 7.5-325] Ibuprofen [Motrin Ib] 400 mg PO Q8H PRN 08/23/21 03/03/23 History Pioglitazone [Actos] 45 mg PO DAILY 08/23/21 03/03/23 History DULoxetine HCL [Cymbalta] 30 mg PO BID 03/03/23 03/03/23 History Furosemide [Lasix] 40 mg PO DAILY 03/03/23 03/03/23 History Insulin Detemir [Levemir Flextouch 23 units SQ HS 03/03/23 03/03/23 History Pen] Levothyroxine Sodium [Synthroid] 75 mcg PO DAILY 03/03/23 03/03/23 History Potassium Chloride [Klor-Con 10 ER] 10 meq PO DAILY 03/03/23 03/03/23 History amLODIPine [Norvasc] 10 mg PO HS 03/03/23 03/03/23 History hydrALAZINE HCL [Apresoline] 25 mg PO TID 03/03/23 03/03/23 History HYDROcodone/APAP 7.5-325MG [[place] 1 - 2 tab PO Q6H PRN #32 tab 03/10/23 Rx 7.5-325] Ibuprofen 800 mg PO Q8H PRN #90 tab 03/10/23 Rx Sennosides [Senokot] 2 tab PO DAILY PRN #60 tablet 03/10/23 Rx Allergies Allergy/AdvReac Type Severity Reaction Status Date / Time PAM Inhibitors Allergy Cough Verified 03/09/23 06:01 adhesive Allergy Rash/Hives,SKIN Verified 03/09/23 06:01 BLISTERS clarithromycin [From Biaxin] Allergy INSOMINA Verified 03/09/23 06:01 meloxicam [From Mobic] Allergy Itching Verified 03/09/23 06:01 naproxen Allergy Itching Verified 03/09/23 06:01 Physical Exam Vitals: Vital Signs Temp Pulse Pulse Resp BP BP Pulse Ox 03/09/23 13:00 86 18 133/75 93 L 03/09/23 12:45 86 147/84 94 L 03/09/23 12:30 83 146/80 93 L 03/09/23 12:18 93 L 03/09/23 12:16 84 18 128/72 93 L 03/09/23 12:15 84 128/72 91 L 03/09/23 12:00 84 159/74 94 L 03/09/23 11:33 85 20 158/72 95 03/09/23 11:03 83 20 155/72 95 03/09/23 10:33 77 18 150/68 94 L 03/09/23 10:03 80 16 153/70 92 L 03/09/23 09:48 75 16 149/67 93 L 03/09/23 09:33 75 18 151/70 93 L 03/09/23 09:18 74 20 150/68 93 L 03/09/23 09:03 76 20 154/68 90 L 03/09/23 08:48 74 20 159/70 92 L 03/09/23 08:33 97.4 F L 84 16 167/74 96 03/09/23 06:49 81 16 152/70 97 03/09/23 06:08 97.5 F L 85 16 167/77 98 Intake and Output 03/08/23 03/09/23 03/09/23 22:59 06:59 14:59 Intake Total 300 1501 Output Total 150 Balance 300 1351 Intake: IV 300 1501 Output: Estimated Blood Loss 150 Other: # Voids 1 Weight 120.5 kg 120.5 kg Results CBC & Chem 7: 03/10/23 07:02 03/10/23 07:02 Labs: Abnormal Lab Results - Last 24 Hours (Table) 03/09/23 03/09/23 Range/Units 06:22 09:11 POC Glucose (mg/dL) 125 H 164 H (70-110) mg/dL
[2023-03-09 20:39] LABS: Glucose,Whole Blood 247 mg/dL (70-110)
[2023-03-09] MEDS: GABAPENTIN 300 MG CAP PO SCH (21:07)
[2023-03-09] MEDS: amLODIPine 10 MG TAB PO SCH (21:07)
[2023-03-09] MEDS: ATORVASTATIN 40 MG TAB PO SCH (21:07)
[2023-03-09] MEDS: INSULIN DETEMIR (LEVEMIR) 100 UNIT/ML SYR SQ SCH (21:07)
[2023-03-09] MEDS: DULoxetine HCL 30 MG CAPSULE.DR PO SCH (21:08)
[2023-03-10] MEDS: HYDROmorphone 0.5 MG/0.5 ML SYRINGE IVP PRN ×3 (01:58→17:50)
[2023-03-10 06:08] LABS: Glucose,Whole Blood 164 mg/dL (70-110)
[2023-03-10] MEDS: INSULIN ASPART (NovoLOG) 100 UNIT/ML VIAL SQ SCH ×4 (06:16→23:05)
[2023-03-10] MEDS: LEVOTHYROXINE 75 MCG TAB PO SCH (06:33)
[2023-03-10] MEDS: HYDROcodone/APAP 7.5-325MG 1 EACH TAB PO PRN ×3 (06:33→23:27)
[2023-03-10] MEDS: LACTATED RINGERS 1,000 ML IV SCH (06:57)
[2023-03-10 07:53] LABS: African American GFR (CKD) 56 (>60 ml/min/1.73 sqM); Anion Gap 9 mmol/L; Blood Urea Nitrogen 18 mg/dL (7-17); Calcium 8.9 mg/dL (8.4-10.2); Carbon Dioxide 28 mmol/L (22-30); Chloride 95 mmol/L (98-107); Glucose 145 mg/dL (74-99); Magnesium 1.9 mg/dL (1.6-2.3); Non-African American GFR(CKD) 49 (>60 ml/min/1.73 sqM); Potassium 4.4 mmol/L (3.5-5.1); Sodium 132 mmol/L (137-145)
[2023-03-10] MEDS: DULoxetine HCL 30 MG CAPSULE.DR PO SCH ×2 (10:06→23:05)
[2023-03-10] MEDS: FUROSEMIDE 40 MG TAB PO SCH (10:06)
[2023-03-10] MEDS: hydrALAZINE HCL 25 MG TAB PO SCH ×3 (10:06→23:26)
[2023-03-10] MEDS: GABAPENTIN 300 MG CAP PO SCH ×2 (10:06→23:05)
[2023-03-10] MEDS ORDERED: IBUPROFEN 800 MG TAB PO PRN (11:17)
--- NOTE | 2023-03-10 11:24 | P.PN ---
Subjective Progress Note Date: 03/10/23 This is a 77-year-old female who is status post reverse right total shoulder arthroplasty. This is postoperative day #1 and patient is seen and evaluated at bedside with Dr. Carlos Claire. Patient states that she is quite sore today. Patient denies any other new complaints. Patient denies any fever/chills, numbness, weakness, tingling, abdominal pain, shortness of breath or chest pain. Objective - Vital Signs Vital signs: Vital Signs Temp 97.7 F 03/10/23 08:00 Pulse 94 03/10/23 08:00 Resp 18 03/10/23 08:00 BP 147/79 03/10/23 08:00 Pulse Ox 93 L 03/10/23 08:00 FiO2 Intake & Output 03/09/23 03/10/23 03/10/23 18:59 06:59 18:59 Intake Total 1501 Output Total 150 Balance 1351 Weight 120.5 kg Intake: IV 1501 Output: Estimated Blood Loss 150 Other: # Voids 2 3 1 - Exam Vital signs are stable. Patient is in no acute distress and is alert and oriented 3. Calf is soft and nontender to palpation. Dressing is clean, dry, and intact. Patient has full wrist and hand motion without pain or difficulty. Sensation intact. Neurovascular status and circulatory status are intact. - Labs CBC & Chem 7: 03/10/23 07:02 Labs: Abnormal Lab Results - Last 24 Hours (Table) 03/09/23 03/09/23 03/10/23 Range/Units 17:22 20:37 06:06 Sodium (137-145) mmol/L Chloride (98-107) mmol/L BUN (7-17) mg/dL Creatinine (0.52-1.04) mg/dL Glucose (74-99) mg/dL POC Glucose (mg/dL) 289 H 247 H 164 H (70-110) mg/dL Hemoglobin A1c (<=6.0) % 03/10/23 03/10/23 Range/Units 07:02 07:02 Sodium 132 L (137-145) mmol/L Chloride 95 L (98-107) mmol/L BUN 18 H (7-17) mg/dL Creatinine 1.10 H (0.52-1.04) mg/dL Glucose 145 H (74-99) mg/dL POC Glucose (mg/dL) (70-110) mg/dL Hemoglobin A1c 6.1 H (<=6.0) % Assessment and Plan (1) S/p reverse total shoulder arthroplasty Current Visit: Yes Status: Acute Code(s): Z96.619 - PRESENCE OF UNSPECIFIED ARTIFICIAL SHOULDER JOINT SNOMED Code(s): 882537525 (2) Osteoarthritis of right shoulder Current Visit: Yes Status: Acute Code(s): M19.011 - PRIMARY OSTEOARTHRITIS, RIGHT SHOULDER SNOMED Code(s): 120092198308308 Plan: 1. Maintain sling to the right upper extremity. 2. Dressing to stay in place for 7 days. 3. Continue routine postoperative care and pain control. 4. Planning on discharge home tomorrow.
[2023-03-10] MEDS ORDERED: BENZOCAINE/MENTHOL LOZENG 1 EACH LOZENGE MUCOUS MEM PRN (11:47)
[2023-03-10 11:54] LABS: Glucose,Whole Blood 149 mg/dL (70-110)
[2023-03-10 14:18] LABS: HCT 30.5 % (34.0-46.0); MCH 30.9 pg (25.0-35.0); MCV 93.6 fL (80.0-100.0); Mean Platelet Volume 8.8; Platelet Count 218 k/uL (150-450); RBC 3.25 m/uL (3.80-5.40); RDW 14.5 % (11.5-15.5); WBC 9.7 k/uL (3.8-10.6)
[2023-03-10 16:58] LABS: Glucose,Whole Blood 164 mg/dL (70-110)
--- NOTE | 2023-03-10 19:02 | P.PN ---
Subjective Progress Note Date: 03/10/23 Hospital course: Patient is a very pleasant 77-year-old female with a past medical history of hypertension, hyperlipidemia, insulin-dependent diabetes mellitus type 2, hypothyroidism, and osteoarthritis. She is currently admitted under orthopedic surgery team status post reverse right total shoulder arthroplasty completed by Dr. Claire. We have been consulted for medical management throughout patient's hospitalization. Physical exam: Patient seen and fully evaluated at bedside this morning. Patient continues to have uncontrolled pain and difficulties with movement due to pain in right shoulder. Patient still requiring IV breakthrough pain medication for assistance in controlling pain. Vital signs reviewed and stable. General: Nontoxic, no distress and appears stated age. Derm: Skin warm and dry, normal coloration for ethnicity. Head: Atraumatic, normocephalic and symmetric. Eyes: EOMs intact, no lid lag, and anicteric sclera Mouth: no lip lesions, mucus membranes moist Cardiovascular: regular rate and rhythm with normal S1S2, no murmur, positive posterior tibial pulses bilaterally, and cap refill < 2 seconds. Lungs: Respirations even, regular, and unlabored on room air. Lungs CTA bilaterally, no rhonchi, no rales, no wheezing, and no accessory muscle usage. Abdominal: soft, nontender to palpation, no guarding, no appreciable organomegaly Ext: No gross muscle atrophy, no edema, no contractures right upper extremity in postoperative dressing and sling, movement and sensation of right hand and fingers is intact. Neuro: Speech clear, face symmetrical and CN II-XII grossly intact with no noted focal neuro deficits Psych: Alert and oriented to person, place, time, and situation. Appropriate and pleasant affect. Assessment and Plan of Care: Acute postoperative blood loss anemia Severe osteoarthritis Status post reverse right total shoulder arthroplasty -Management per primary admitting orthopedic surgery team including DVT prophylaxis, pain management, wound/dressing care, and PT/OT. -Currently DVT prophylaxis with KOFFI hose and SCDs. -Acute postoperative blood loss anemia as a stable unexpected finding. Postoperative hemoglobin of 10.0 with preoperative hemoglobin of 11.2, no need for further monitoring and/or interventions at this time. Insulin-dependent diabetes mellitus with hyperglycemia -Continue Levemir 23 units nightly and patient placed on glycemic protocol with NovoLog sliding scale. -Hemoglobin A1c 6.1%. Hypertension Hyperlipidemia Hypothyroidism Depression -Patient to continue with daily medication regimen consisting of levothyroxine 75 g daily, hydralazine 25 mg 3 times daily, gabapentin 300 mg twice daily, furosemide 40 mg daily, Cymbalta 30 mg twice daily, atorvastatin 40 mg nightly, and amlodipine 10 mg nightly. Data reviewed: Morning labs reviewed. CBC showing acute postoperative blood loss anemia with stable hemoglobin of 10.0. BMP revealing mild hyponatremia with sodium of 132, hyperchloremia with chloride of 95, and slightly elevated renal function with BUN of 18, creatinine 1.10, and GFR 49. Vital signs reviewed. Blood pressure 147/79, heart rate 94, respiratory rate 18, temp 97.7F, SpO2 of 93% on room air. Thank you for allowing us to participate in the care of this pleasant patient. Do not hesitate to contact us with questions. Someone can be reached from the [facility] hospitalist group all hours of the day at [phone] or via [employer]. Patient was seen independently by Nurse Practitioner. This document was prepared using [employer] Real[employer] dictation software. Please allow for errors in research interviewer while rare they do occur. Dallas Galarza NP rendered care for this patient independently, reviewed the findings and plan as documented in the note above. I did not physically speak with or examine the patient on this date. Objective - Vital Signs Vital signs: Vital Signs Temp 97.7 F 03/10/23 08:00 Pulse 94 03/10/23 08:00 Resp 18 03/10/23 08:00 BP 147/79 03/10/23 08:00 Pulse Ox 93 L 03/10/23 08:00 FiO2 Intake & Output 03/09/23 03/10/23 03/10/23 18:59 06:59 18:59 Intake Total 1501 Output Total 150 Balance 1351 Weight 120.5 kg Intake: IV 1501 Output: Estimated Blood Loss 150 Other: # Voids 2 3 - Labs CBC & Chem 7: 03/10/23 07:02 03/10/23 07:02 Labs: Abnormal Lab Results - Last 24 Hours (Table) 03/09/23 03/09/23 03/10/23 Range/Units 17:22 20:37 06:06 Sodium (137-145) mmol/L Chloride (98-107) mmol/L BUN (7-17) mg/dL Creatinine (0.52-1.04) mg/dL Glucose (74-99) mg/dL POC Glucose (mg/dL) 289 H 247 H 164 H (70-110) mg/dL 03/10/23 Range/Units 07:02 Sodium 132 L (137-145) mmol/L Chloride 95 L (98-107) mmol/L BUN 18 H (7-17) mg/dL Creatinine 1.10 H (0.52-1.04) mg/dL Glucose 145 H (74-99) mg/dL POC Glucose (mg/dL) (70-110) mg/dL
[2023-03-10 21:07] LABS: Glucose,Whole Blood 157 mg/dL (70-110)
[2023-03-10] MEDS: amLODIPine 10 MG TAB PO SCH (23:05)
[2023-03-10] MEDS: ATORVASTATIN 40 MG TAB PO SCH (23:05)
[2023-03-10] MEDS: INSULIN DETEMIR (LEVEMIR) 100 UNIT/ML SYR SQ SCH (23:06)
[2023-03-11] MEDS: LACTATED RINGERS 1,000 ML IV SCH (06:08)
[2023-03-11 06:13] LABS: Glucose,Whole Blood 119 mg/dL (70-110)
[2023-03-11] MEDS: LEVOTHYROXINE 75 MCG TAB PO SCH (06:13)
[2023-03-11] MEDS: HYDROcodone/APAP 7.5-325MG 1 EACH TAB PO PRN ×2 (06:13→11:51)
[2023-03-11] MEDS: INSULIN ASPART (NovoLOG) 100 UNIT/ML VIAL SQ SCH (06:20)
[2023-03-11 07:02] VITALS: BP 127/72; PULSE 86; RESP 17; TEMP 98.2
[2023-03-11] MEDS: FUROSEMIDE 40 MG TAB PO SCH (08:09)
[2023-03-11] MEDS: GABAPENTIN 300 MG CAP PO SCH (08:09)
[2023-03-11] MEDS: hydrALAZINE HCL 25 MG TAB PO SCH (08:09)
[2023-03-11] MEDS: DULoxetine HCL 30 MG CAPSULE.DR PO SCH (08:09)
--- NOTE | 2023-03-11 10:11 | P.DS ---
Providers Expected date of discharge: 03/11/23 Attending physician: Carlos Claire Consults: 03/09/23 13:02 Consult Physician Routine Consulting Provider: Vandana Cordero Consult Reason/Comments: medical management Do you want consulting provider notified?: Yes Primary care physician: Carlos Lao - Discharge Diagnosis(es) (1) S/p reverse total shoulder arthroplasty Current Visit: Yes Status: Acute (2) Osteoarthritis of right shoulder Current Visit: Yes Status: Acute Hospital Course: This is a 77-year-old female with known history of severe osteoarthritis of the right shoulder and chronic rotator cuff tear. The patient presented for fam stanley as an outpatient. After discussion and consideration patient elects to proceed with reverse total shoulder arthroplasty. The patient is seen preoperatively by Dr. Claire and medically cleared for surgery by their primary care physician. Patient is admitted to [facility] on 03/09/2023 for reverse total shoulder arthroplasty. The procedure is performed without complication or s equelae. The patient is doing well postoperatively. Labs and vital signs are stable on day of discharge. On day of discharge the patient's shoulder incision is healing well. There is minimal erythema. There is no drainage noted at this time. There is minimal soft tissue swelling to the shoulder. Patient has full hand and wrist motion without difficulty or pain. Neurovascular status to the right upper extremity is intact. Patient is discharged home in good condition. Please see [facility] rec for accurate list of home medications. Plan - Discharge Summary Discharge Rx Participant: No New Discharge Prescriptions: New Ibuprofen 800 mg PO Q8H PRN #90 tab PRN Reason: Pain Sennosides [Senokot] 2 tab PO DAILY PRN #60 tablet PRN Reason: Constipation HYDROcodone/APAP 7.5-325MG [[place] 7.5-325] 1 - 2 tab PO Q6H PRN #32 tab PRN Reason: Pain No Action Gabapentin [Neurontin] 300 mg PO BID Atorvastatin [Lipitor] 40 mg PO HS hydrALAZINE HCL [Apresoline] 25 mg PO TID Insulin Detemir [Levemir Flextouch Pen] 23 units SQ HS DULoxetine HCL [Cymbalta] 30 mg PO BID Levothyroxine Sodium [Synthroid] 75 mcg PO DAILY amLODIPine [Norvasc] 10 mg PO HS Ibuprofen [Motrin Ib] 400 mg PO Q8H PRN PRN Reason: Pain Or Fever > 100.5 Pioglitazone [Actos] 45 mg PO DAILY HYDROcodone/APAP 7.5-325MG [[place] 7.5-325] 1 tab PO TID Furosemide [Lasix] 40 mg PO DAILY Potassium Chloride [Klor-Con 10 ER] 10 meq PO DAILY Discharge Medication List Atorvastatin [Lipitor] 40 mg PO HS 08/23/21 [History] Gabapentin [Neurontin] 300 mg PO BID 08/23/21 [History] HYDROcodone/APAP 7.5-325MG [[place] 7.5-325] 1 tab PO TID 08/23/21 [History] Ibuprofen [Motrin Ib] 400 mg PO Q8H PRN 08/23/21 [History] Pioglitazone [Actos] 45 mg PO DAILY 08/23/21 [History] DULoxetine HCL [Cymbalta] 30 mg PO BID 03/03/23 [History] Furosemide [Lasix] 40 mg PO DAILY 03/03/23 [History] Insulin Detemir [Levemir Flextouch Pen] 23 units SQ HS 03/03/23 [History] Levothyroxine Sodium [Synthroid] 75 mcg PO DAILY 03/03/23 [History] Potassium Chloride [Klor-Con 10 ER] 10 meq PO DAILY 03/03/23 [History] amLODIPine [Norvasc] 10 mg PO HS 03/03/23 [History] hydrALAZINE HCL [Apresoline] 25 mg PO TID 03/03/23 [History] Ibuprofen 800 mg PO Q8H PRN #90 tab 03/10/23 [Rx] Sennosides [Senokot] 2 tab PO DAILY PRN #60 tablet 03/10/23 [Rx] HYDROcodone/APAP 7.5-325MG [[place] 7.5-325] 1 - 2 tab PO Q6H PRN #32 tab 03/11/23 [Rx] Follow up Appointment(s)/Referral(s): Carlos Claire DO [Doctor of Osteopathic Medicine] - 2 Weeks Activity/Diet/Wound Care/Special Instructions: Maintain sling for comfort. Dressing may be removed by home care nurse or by patient in 7 days. Then change dressing twice daily until follow up. May shower with initial dressing intact and after removal. If dressing become saturated, please remove. Pain management per family physician. Please follow-up with [facility] and call with any questions or concerns, . Discharge Disposition: HOME WITH HOME HEALTH SERVICES
[2023-03-11 11:41] LABS: Glucose,Whole Blood 126 mg/dL (70-110)
--- NOTE | 2023-03-11 11:44 | P.PN ---
Subjective Progress Note Date: 03/11/23 Hospital course: Patient is a very pleasant 77-year-old female with a past medical history of hypertension, hyperlipidemia, insulin-dependent diabetes mellitus type 2, hypothyroidism, and osteoarthritis. She is currently admitted under orthopedic surgery team status post reverse right total shoulder arthroplasty completed by Dr. Claire. We have been consulted for medical management throughout patient's hospitalization. Physical exam: Patient seen and fully evaluated at bedside this morning. Patient reports her pain in her right shoulder is much better controlled this morning. Patient is dressed and reports feeling ready for home. Patient reports her daughter will be helping her at home and denies having any further questions, needs, or complaints at this time. Vital signs reviewed and stable. General: Nontoxic, no distress and appears stated age. Derm: Skin warm and dry, normal coloration for ethnicity. Head: Atraumatic, normocephalic and symmetric. Eyes: EOMs intact, no lid lag, and anicteric sclera Mouth: no lip lesions, mucus membranes moist Cardiovascular: regular rate and rhythm with normal S1S2, no murmur, positive posterior tibial pulses bilaterally, and cap refill < 2 seconds. Lungs: Respirations even, regular, and unlabored on room air. Lungs CTA bilaterally, no rhonchi, no rales, no wheezing, and no accessory muscle usage. Abdominal: soft, nontender to palpation, no guarding, no appreciable organomegaly Ext: No gross muscle atrophy, no edema, no contractures right upper extremity in postoperative dressing and sling, movement and sensation of right hand and fingers is intact. Neuro: Speech clear, face symmetrical and CN II-XII grossly intact with no noted focal neuro deficits Psych: Alert and oriented to person, place, time, and situation. Appropriate and pleasant affect. Assessment and Plan of Care: Acute postoperative blood loss anemia Severe osteoarthritis Status post reverse right total shoulder arthroplasty -Management per primary admitting orthopedic surgery team including DVT prophylaxis, pain management, wound/dressing care, and PT/OT. -Currently DVT prophylaxis with KOFFI hose and SCDs. -Acute postoperative blood loss anemia is a stable and expected finding. Postoperative hemoglobin of 10.0 with preoperative hemoglobin of 11.2. There is no need for further monitoring and/or interventions. Pt stable from medical standpoint for discharge. Insulin-dependent diabetes mellitus with hyperglycemia -Continue Levemir 23 units nightly and patient placed on glycemic protocol with NovoLog sliding scale. -Hemoglobin A1c 6.1%. Hypertension Hyperlipidemia Hypothyroidism Depression -Patient to continue with daily medication regimen consisting of levothyroxine 75 g daily, hydralazine 25 mg 3 times daily, gabapentin 300 mg twice daily, furosemide 40 mg daily, Cymbalta 30 mg twice daily, atorvastatin 40 mg nightly, and amlodipine 10 mg nightly. Data reviewed: Vital signs reviewed. Morning vitals reviewed and stable with blood pressure 127/72, heart rate 86, respiratory rate 17, temp 98.2F, and SpO2 of 95% on room air. Patient is cleared from a medical standpoint for discharge once cleared by primary admitting orthopedic surgery team. Thank you for allowing us to participate in the care of this pleasant patient. Do not hesitate to contact us with questions. Someone can be reached from the [facility] hospitalist group all hours of the day at [phone] or via [employer]. Patient was seen independently by Nurse Practitioner. This document was prepared using [employer] dictation software. Please allow for errors in umbrella tipper while rare they do occur. Dallas Galarza NP rendered care for this patient independently, reviewed the findings and plan as documented in the note above. I did not physically speak with or examine the patient on this date. Objective - Vital Signs Vital signs: Vital Signs Temp 98.2 F 03/11/23 06:59 Pulse 86 03/11/23 09:13 Resp 17 03/11/23 06:59 BP 127/72 03/11/23 06:59 Pulse Ox 95 03/11/23 08:17 FiO2 Intake & Output 03/10/23 03/11/23 03/11/23 18:59 06:59 18:59 Intake Total 236 Balance 236 Intake: Oral 236 Other: # Voids 1 1 - Labs CBC & Chem 7: 03/10/23 07:02 03/10/23 07:02 Labs: Abnormal Lab Results - Last 24 Hours (Table) 03/10/23 03/10/23 03/10/23 Range/Units 07:02 07:02 11:52 RBC 3.25 L (3.80-5.40) m/uL Hgb 10.0 L (11.4-16.0) gm/dL Hct 30.5 L (34.0-46.0) % POC Glucose (mg/dL) 149 H (70-110) mg/dL Hemoglobin A1c 6.1 H (<=6.0) % 03/10/23 03/10/23 03/11/23 Range/Units 16:57 21:05 06:10 RBC (3.80-5.40) m/uL Hgb (11.4-16.0) gm/dL Hct (34.0-46.0) % POC Glucose (mg/dL) 164 H 157 H 119 H (70-110) mg/dL Hemoglobin A1c (<=6.0) %
== END 2023-03-11 12:11 | disposition home health service (06) ==
LOC: OR 05:43 → 4SSUR 08:33 → OR 03-11 12:11
PROVIDERS: ATTEND Orthopaedic Surgery
DX: M19.011 Primary osteoarthritis, right shoulder (principal); M75.101 Unspecified rotator cuff tear or rupture of right shoulder, not specified as traumatic; E11.9 Type 2 diabetes mellitus without complications; E78.5 Hyperlipidemia, unspecified; F32.A Depression, unspecified; E03.9 Hypothyroidism, unspecified; I10 Essential (primary) hypertension; Z79.4 Long term (current) use of insulin; Z79.84 Long term (current) use of oral hypoglycemic drugs; Z79.890 Hormone replacement therapy; Z79.899 Other long term (current) drug therapy; Z96.611 Presence of right artificial shoulder joint; Z88.8 Allergy status to other drugs, medicaments and biological substances
CPT/HCPCS: 94760 ×2; 64415; 80048; 83735; 85027; 83036; 73020; 23472; C1776; J2250; J1100; J0690 ×2; J2405; J1170 ×2

== ENCOUNTER → 2023-10-27 | Outpatient (CLI) | payer MEDICARE, BC, OTHER ==
--- NOTE | 2023-11-01 18:36 | CT ---
EXAMINATION TYPE: CT chest wo con DATE OF EXAM: 10/27/2023 COMPARISON: 07/21/2022 HISTORY: nodule CT DLP: 920 mGycm, Automated exposure control for dose reduction was used. CONTRAST: Without intravenous contrast TECHNIQUE: Axial images were obtained at 5 mm thick sections. Reconstructed images are reviewed on [employer] computer in the coronal plane. FINDINGS: Portion of the thyroid visualized is normal. No suspicious lung nodules or focal infiltrates are present. There is a stable 0.5 cm nodule left lat eral lung base. Series 4 image 60. No enlarged mediastinal or hilar adenopathy is evident. Small pretracheal lymph node is present. The ascending aorta diameter at the level of the main pulmonary artery is 3.9 cm. The main pulmonary ar dariana diameter at the bifurcation is 3.6 cm. Mild coronary artery calcification is present. Limited CT sections are obtained through the upper abdomen. Abdomen is essentially unremarkable. IMPRESSION: 1. Stable nodule left lateral lung sulcus.
== END | disposition home or self-care (01) ==
LOC: RADCTMAIN 13:22
PROVIDERS: ATTEND Internal Medicine
DX: R91.1 Solitary pulmonary nodule (principal)
CPT/HCPCS: 71250

== ENCOUNTER → 2023-11-12 | Outpatient (CLI) | payer MEDICARE, BC, OTHER ==
--- NOTE | 2023-11-12 15:04 | XR ---
EXAMINATION TYPE: XR wrist complete RT DATE OF EXAM: 11/12/2023 COMPARISON: NONE HISTORY: Pain TECHNIQUE: Four views submitted. FINDINGS: The osseous structures are intact. The joint spaces are preserved and there is no acute fracture or dislocation. Diffuse osteopenia with mild first MCP and first carpometacarpal joint arthropathy. IMPRESSION: 1. First carpal metacarpal and first MCP joint mild arthropathy. No acute fracture. If symptoms persi st consider follow-up exam in 10-14 days.
== END | disposition home or self-care (01) ==
LOC: RADXRYALE 14:28
PROVIDERS: ATTEND Physician Assistant Medical
DX: M25.531 Pain in right wrist (principal)